=== PATIENT | female | born 1995 | race Caucasian/White ===

== ENCOUNTER 2017-04-27 07:00 | Inpatient (IN) | payer MEDICAID ==
[2017-04-27] VITALS (65 sets, daily range): BP systolic 95–176; BP diastolic 53–104
[~2017-04-27] VITALS: Ht 167.6 cm; Wt 81.6 kg
--- OUTSIDE RECORDS SUMMARY | 2017-04-27 07:29 | XMS REPORT | Continuity of Care Document ---
Demographics Preferred Language Unknown Marital Status Unknown Yazidi Affiliation Unknown Race Unknown Ethnic Group Unknown Author Author [facility] Address Unknown Phone Unavailable Allergies Medications Problems Procedures Results Encounters ACCT No. Visit Date/Time Discharge Status Pt. Type Provider Facility Loc./Unit Complaint [id number] 12/27/2012 19:10:59 Document Registration
[2017-04-27] MEDS ORDERED: OXYTOCIN/NORMAL SALINE 500 ML IV SCH ×2 (08:11→20:35)
[2017-04-27 08:14] LABS: BASOPHILS # (AUTO) 0.1 10^3/uL (0.0-0.1); BASOPHILS % (AUTO) 1 % (0-10); EOSINOPHILS # (AUTO) 0.7 10^3/uL (0.0-0.3); EOSINOPHILS % (AUTO) 7 % (0-10); LYMPHOCYTES # (AUTO) 2.2 X 10^3 (1.0-4.0); LYMPHOCYTES % (AUTO) 24 % (12-44); MEAN CORPUSCULAR HEMOGLOBIN 32 PG (25-34); MEAN CORPUSCULAR HGB CONC 35 G/DL (32-36); MEAN CORPUSCULAR VOLUME 92 FL (80-99); MEAN PLATELET VOLUME 11.8 FL (7.4-10.4); MONOCYTES # (AUTO) 0.9 X 10^3 (0.0-1.0); MONOCYTES % (AUTO) 10 % (0-12); NEUTROPHILS # (AUTO) 5.4 X 10^3 (1.8-7.8); NEUTROPHILS % (AUTO) 59 % (42-75); PLATELET COUNT 122 10^3/uL (130-400); RED BLOOD COUNT 3.85 10^6/uL (4.35-5.85); RED CELL DISTRIBUTION WIDTH 12.9 % (10.0-14.5); WHITE BLOOD COUNT 9.2 10^3/uL (4.3-11.0)
[2017-04-27] MEDS: D5 LR IV SOLUTION 1,000 ML IV SCH ×2 (08:19→14:31)
--- NOTE | 2017-04-27 08:35 | History & Physical ---
History and Physical Date Seen by Provider: Apr 27, 2017 Time Seen by Provider: 08:31 this patient is a 21-year-old G1 white female with an EDC of May 06, 2017. She presents now on April 27, 2017 for induction of labor secondary to oligohydramnios and cytopenia. Her last platelet count in clinic was 125,000 on admission her platelet count is 122K. her JOSE in clinic on 21 April was 60. She denies rupture membranes or bleeding. GBS culture on April 01, 2017 was negative she's had no specific problems with this . Allergies are to sulfa Demerol Products Medications are vitamins calcium and Prozac Past medical history, past surgical history, obstetric history, family history, and social histories are per the antepartum record HEENT exam is normal Neck is supple no lymphadenopathy no thyromegaly Abdomen is gravid soft nontender nondistended Extremities show no clubbing cyanosis. There is no Homans sign. There is some minimal pretibial pitting edema that is normal. Pelvic exam shows a cervix that is 2+ and regular dilated 50+ percent effaced - 1 to -2 station soft midplane with a vertex presentation and intact membranes. Amniotomy is performed with release of a small amount of clear fluid. Lab work is as followsLaboratory Tests 04/27/17 07:45 monitor shows a normal heart rate pattern with contractions about every 3-6 minutes. Has Been Initiated. Assessment and plan 38-5/7 weeks' gestation with thrombocytopenia and oligohydramnios. She has undergone induction of labor with Pitocin with the expectation of a vaginal delivery. Epidural will be allowed. Platelet count is adequate on admission at 122,000. GBS culture was negative term at 38+ weeks with thrombocytopenia and oligohydramnios Allergies and Home Medications Allergies Coded Allergies: midazolam (Verified Allergy, Severe, ANAPHYLAXIS, 04/27/17) Sulfa (Sulfonamide Antibiotics) (Verified Allergy, Unknown, RASH, 04/27/17) meperidine (Verified Allergy, Unknown, ANAPHYLAXIS, 04/27/17) JOSE MANUEL DAWSON MD Apr 27, 2017 08:35
[2017-04-27] MEDS ORDERED: SUFENTA 0.6MCG/ML BUPIVA 0.125 100 ML ONE (09:40)
[2017-04-27] MEDS ORDERED: BUPIVACAINE 0.25% 30 ML (SENSORCAINE) VIAL ONE (09:57)
[2017-04-27] MEDS ORDERED: fentaNYL INJECTION 100 MCG/2 ML AMP ONE (09:57)
[2017-04-27] MEDS: EPIDURAL (SUFENTA 0.6MCG/ML BUPIVA 0.125%) 100 ML BAG EPI PRN ×2 (10:30→18:18)
[2017-04-27] MEDS ORDERED: LACTATED RINGERS 1,000 ML IV SCH (10:56)
[2017-04-27] MEDS ORDERED: ONDANSETRON 4 MG/2 ML (SDV) Z0FRAN IV PRN (11:00)
[2017-04-27] MEDS ORDERED: diphenhydrAMINE 50 MG/ML INJ (BENADRYL) IV PRN (11:00)
[2017-04-27] MEDS ORDERED: METOCLOPRAMIDE INJ 10 MG/2 ML (REGLAN) IV PRN (11:00)
[2017-04-27] MEDS ORDERED: NALOXONE 0.4 MG/ML 1 ML (NARCAN) VIAL IV PRN ×2 (11:00)
[2017-04-27] MEDS ORDERED: CATHETER FLUSH 10 ML SYR IV SCH (14:00)
[2017-04-27] MEDS ORDERED: LIDOCAINE/EPI 2% 1:200,00 (XYLOCAINE) 10 ML VIAL ONE ×2 (18:49→19:08)
[2017-04-27] MEDS ORDERED: MEASLES,MUMPS,RUBELLA 1 EA INJ SC ONE (20:45)
[2017-04-27] MEDS ORDERED: TETANUS,DIPTH,PERTUSS P/F (BOOSTRIX) 0.5 ML VIAL IM ONE (20:45)
[2017-04-27] MEDS ORDERED: BENZOCAINE/MENTHOL (DERMOPLAST) 56 ML CAN TP PRN (20:45)
[2017-04-27] MEDS ORDERED: WITCH HAZEL(TUCKS) 40 EA JAR ONE (22:12)
[2017-04-27] MEDS: KETOROLAC 30 MG/ML VIAL IV SCH (22:20)
[2017-04-28] MEDS: oxyCODONE/APAP 10/325MG (PERCOCET 10) TABLET PO PRN ×3 (02:26→20:53)
[2017-04-28 03:00] VITALS: BP 132/76
[2017-04-28] MEDS: KETOROLAC 30 MG/ML VIAL IV SCH (04:17)
--- NOTE | 2017-04-28 05:44 | OPERATIVE REPORT ---
DATE OF SERVICE: 04/27/2017 REPORT TITLE: DELIVERY NOTE DATE OF DELIVERY: 04/27/2017 The patient delivered via term spontaneous vaginal delivery at 38 and 2/7 weeks' gestation, a viable male with Apgars of 8 and 9 at 1 and 5 minutes respectively. Weight is 7 pounds and 1 ounce, time of 2011. The infant was delivered over a midline episiotomy that was performed at the patient's request when the presenting descended onto the perineum and she could not push the baby through. The episiotomy was performed under her epidural augmented with local infiltrated into her bottom and the delivery ensued fairly promptly. The was bulb suctioned on delivery of the head. Again, on completion of the delivery, the infant was quickly pink, moved all extremities, had excellent tone and reflexes and a vigorous cry. The umbilical cord was doubly clamped. Father cut the cord and baby was passed to mom's abdomen. This was accomplished after the umbilical cord bloods were obtained including a cord blood gas that was obtained secondary to some decelerations during the second stage of labor. The placenta delivered promptly spontaneous Dickerson, it was a battledore placenta with a velamentous insertion of the umbilical cord for approximately 5 cm prior to attachment to the placental disk. The placenta was sent to pathology for permanent section. The cervix, vagina, rectum, perineum were examined and found intact except for the midline episiotomy, which was repaired with a single suture of 3-0 Vicryl in the usual manner to good hemostasis and good reapproximation. Sponge and needle counts were correct on completion of the delivery and the repair. Estimated blood loss was around 400 mL. The patient tolerated the delivery and the repair very well and recovered in the LDR. The baby remained with the mom. Job ID: [id number] DocumentID: [id number] Dictated Date: 04/27/2017 20:35:26 Hose Tester Date: 04/28/2017 05:43:23 Dictated By: JOSE MANUEL DAWSON MD
[2017-04-28] MEDS ORDERED: FLUO20CA42 PO (07:27)
[2017-04-28] MEDS ORDERED: PATIENT MAY USE OWN MEDS, ALL MC SCH (07:30)
--- NOTE | 2017-04-28 07:37 | Progress Note-Standard ---
Standard Progress Note Progress Notes/Assess & Plan Date Seen by Provider: Apr 28, 2017 Time Seen by Provider: 07:36 Progress/Assessment & Plan this patient is without complaint. She is ambulating, voiding, tolerating by mouth well, has good pain control. Vital Signs Date Time Temp Pulse Resp B/P (MAP) Pulse Ox O2 Delivery O2 Flow Rate FiO2 04/28/17 03:00 98.4 102 17 132/76 99 Room Air 04/27/17 23:25 99.1 93 18 115/65 97 Room Air 04/27/17 21:30 100.0 96 18 133/78 Room Air 04/27/17 21:15 99.6 88 18 128/72 Room Air 04/27/17 21:00 99.6 106 18 126/71 Room Air 04/27/17 20:45 99.2 100 18 135/79 Room Air 04/27/17 20:30 98.9 106 18 133/78 Room Air 04/27/17 20:12 18 Room Air 04/27/17 20:00 104 18 176/89 Room Air 04/27/17 19:45 111 18 153/104 Room Air 04/27/17 19:30 81 18 126/80 Room Air 04/27/17 19:15 93 18 125/78 Room Air 04/27/17 19:00 69 18 120/69 Room Air 04/27/17 18:45 68 18 118/71 Room Air 04/27/17 18:30 72 18 129/84 Room Air 04/27/17 18:15 71 18 126/96 Room Air 04/27/17 18:00 73 18 157/85 Room Air 04/27/17 17:45 69 18 137/78 Room Air 04/27/17 17:40 87 130/70 Room Air 04/27/17 17:35 82 130/76 Room Air 04/27/17 17:30 75 18 135/91 Room Air 04/27/17 17:20 75 18 131/84 Room Air 04/27/17 17:15 97.8 70 18 132/76 Room Air 04/27/17 17:00 77 18 126/82 Room Air 04/27/17 16:45 68 18 129/80 Room Air 04/27/17 16:30 71 18 133/79 Room Air 04/27/17 16:15 73 18 118/76 Room Air 04/27/17 16:00 62 18 130/80 Room Air 04/27/17 15:45 62 18 119/69 Room Air 04/27/17 15:30 65 18 122/71 98 Room Air 04/27/17 15:15 73 18 122/66 98 Room Air 04/27/17 15:00 65 18 117/65 98 Room Air 04/27/17 14:45 73 18 123/69 98 Room Air 04/27/17 14:30 97.6 72 18 123/74 Room Air 04/27/17 14:15 80 18 132/79 Room Air 04/27/17 14:00 76 18 122/76 Room Air 04/27/17 13:45 70 18 121/79 Room Air 04/27/17 13:30 97.2 69 18 133/81 Room Air 04/27/17 13:15 73 18 125/88 Room Air 04/27/17 13:00 67 18 125/88 98 Room Air 04/27/17 12:45 73 18 123/69 98 Room Air 04/27/17 12:30 67 18 117/67 100 Room Air 04/27/17 12:15 96.6 60 18 122/63 100 Room Air 04/27/17 12:00 69 18 115/63 100 Room Air 04/27/17 11:45 97.2 77 18 95/53 100 Room Air 04/27/17 11:30 69 18 108/58 100 Room Air 04/27/17 11:15 63 18 100 Room Air 04/27/17 11:05 62 116/71 99 Room Air 04/27/17 11:00 64 18 124/76 99 Room Air 04/27/17 10:55 73 18 124/69 100 Room Air 04/27/17 10:50 64 18 111/62 100 Room Air 04/27/17 10:45 87 18 130/68 98 Room Air 04/27/17 10:40 103 18 134/75 99 Room Air 04/27/17 10:33 69 18 124/72 98 Room Air 04/27/17 10:30 87 18 130/68 98 Room Air 04/27/17 10:28 70 18 122/61 98 Room Air 04/27/17 10:25 86 18 125/59 98 Room Air 04/27/17 10:20 88 18 134/74 97 Room Air 04/27/17 10:15 98.9 90 18 133/76 99 Room Air 04/27/17 10:10 80 154/91 99 Room Air 04/27/17 10:00 96 18 168/94 100 Room Air 04/27/17 09:45 75 18 137/87 Room Air 04/27/17 09:30 73 18 145/88 Room Air 04/27/17 09:15 74 18 135/87 Room Air 04/27/17 09:00 99.2 62 18 145/92 Room Air 04/27/17 08:45 75 18 134/93 Room Air 04/27/17 08:30 61 18 131/84 Room Air vital signs are stable. Patient is afebrile. Fundus is firm below the umbilicus and nontender. Extremities show clubbing or cyanosis. There is no Homans sign. Assessment and plan day number 1 status post term spontaneous vaginal delivery doing well. Plan for routine convalescence care today and consider discharge home tomorrow JOSE MANUEL DAWSON MD Apr 28, 2017 7:37 am
[2017-04-28] MEDS ORDERED: IBUP-1780 PO (07:38)
[2017-04-28] MEDS ORDERED: DOCU100C37 PO (07:38)
[2017-04-28] MEDS ORDERED: OXYC-465 PO (07:38)
--- NOTE | 2017-04-28 07:40 | Discharge Instructions ---
Discharge Instructions Discharge Medications New, Converted or Re-Newed RX: RX on Chart Patient Instructions Patient Instructions: as directed Return to The Hospital For: as directed Activity & Diet Discharge Diet: No Restrictions Activity as Tolerated: No Orders-Post D/C & Referrals Follow Up Appt: Call to make follow up appt. for patient in 4 weeks. Activity Per routine post vaginal delivery instructions. Diet as tolerated Patient may shower or tub bathe as desired. JOSE MANUEL DAWSON MD Apr 28, 2017 7:40 am
[2017-04-28 08:00] VITALS: BP 133/71
[2017-04-28] MEDS ORDERED: FLUoxetine HCL 20 MG (PROzac) CAP PO SCH ×2 (09:00→21:00)
[2017-04-28] MEDS ORDERED: IBUPROFEN 800 MG (MOTRIN) TAB PO ONE ×2 (09:08→16:04)
[2017-04-28] MEDS: IBUPROFEN 800 MG (MOTRIN) TAB PO SCH ×3 (09:17→22:04)
[2017-04-28] MEDS: DOCUSATE SODIUM 100 MG (COLACE) CAP PO SCH ×2 (09:17→22:04)
[2017-04-28 12:00] VITALS: BP 112/70
--- NOTE | 2017-04-28 13:04 | Anesthesia-Regional Post-Op ---
Regional Patient Condition Mental Status: Alert, Oriented x3 Circulation: Same as Pre-Op Headache: Absent Sensation: Full Recovery Motor Block: Absent Post Op Complications Complications None Follow Up Care/Instructions Patient Instructions None needed. Anesthesia/Patient Condition Patient is doing well, no complaints, stable vital signs, no apparent adverse anesthesia problems. No complications reported per nursing. STU TEMPLETON CRNA Apr 28, 2017 13:03
[2017-04-28 16:07] VITALS: BP 133/81
[2017-04-28 22:19] VITALS: BP 124/80
[2017-04-29 04:05] VITALS: BP 112/66
[2017-04-29] MEDS: IBUPROFEN 800 MG (MOTRIN) TAB PO SCH ×2 (04:05→09:38)
[2017-04-29] MEDS: oxyCODONE/APAP 10/325MG (PERCOCET 10) TABLET PO PRN ×2 (06:37→11:15)
--- NOTE | 2017-04-29 07:28 | Progress Note-Standard ---
Standard Progress Note Progress Notes/Assess & Plan Date Seen by Provider: Apr 29, 2017 Time Seen by Provider: 07:27 Progress/Assessment & Plan this patient is without complaint. She is ambulating, voiding, tolerating by mouth well, has good pain control. Vital Signs Date Time Temp Pulse Resp B/P (MAP) Pulse Ox O2 Delivery O2 Flow Rate FiO2 04/28/17 03:00 98.4 102 17 132/76 99 Room Air 04/27/17 23:25 99.1 93 18 115/65 97 Room Air 04/27/17 21:30 100.0 96 18 133/78 Room Air 04/27/17 21:15 99.6 88 18 128/72 Room Air 04/27/17 21:00 99.6 106 18 126/71 Room Air 04/27/17 20:45 99.2 100 18 135/79 Room Air 04/27/17 20:30 98.9 106 18 133/78 Room Air 04/27/17 20:12 18 Room Air 04/27/17 20:00 104 18 176/89 Room Air 04/27/17 19:45 111 18 153/104 Room Air 04/27/17 19:30 81 18 126/80 Room Air 04/27/17 19:15 93 18 125/78 Room Air 04/27/17 19:00 69 18 120/69 Room Air 04/27/17 18:45 68 18 118/71 Room Air 04/27/17 18:30 72 18 129/84 Room Air 04/27/17 18:15 71 18 126/96 Room Air 04/27/17 18:00 73 18 157/85 Room Air 04/27/17 17:45 69 18 137/78 Room Air 04/27/17 17:40 87 130/70 Room Air 04/27/17 17:35 82 130/76 Room Air 04/27/17 17:30 75 18 135/91 Room Air 04/27/17 17:20 75 18 131/84 Room Air 04/27/17 17:15 97.8 70 18 132/76 Room Air 04/27/17 17:00 77 18 126/82 Room Air 04/27/17 16:45 68 18 129/80 Room Air 04/27/17 16:30 71 18 133/79 Room Air 04/27/17 16:15 73 18 118/76 Room Air 04/27/17 16:00 62 18 130/80 Room Air 04/27/17 15:45 62 18 119/69 Room Air 04/27/17 15:30 65 18 122/71 98 Room Air 04/27/17 15:15 73 18 122/66 98 Room Air 04/27/17 15:00 65 18 117/65 98 Room Air 04/27/17 14:45 73 18 123/69 98 Room Air 04/27/17 14:30 97.6 72 18 123/74 Room Air 04/27/17 14:15 80 18 132/79 Room Air 04/27/17 14:00 76 18 122/76 Room Air 04/27/17 13:45 70 18 121/79 Room Air 04/27/17 13:30 97.2 69 18 133/81 Room Air 04/27/17 13:15 73 18 125/88 Room Air 04/27/17 13:00 67 18 125/88 98 Room Air 04/27/17 12:45 73 18 123/69 98 Room Air 04/27/17 12:30 67 18 117/67 100 Room Air 04/27/17 12:15 96.6 60 18 122/63 100 Room Air 04/27/17 12:00 69 18 115/63 100 Room Air 04/27/17 11:45 97.2 77 18 95/53 100 Room Air 04/27/17 11:30 69 18 108/58 100 Room Air 04/27/17 11:15 63 18 100 Room Air 04/27/17 11:05 62 116/71 99 Room Air 04/27/17 11:00 64 18 124/76 99 Room Air 04/27/17 10:55 73 18 124/69 100 Room Air 04/27/17 10:50 64 18 111/62 100 Room Air 04/27/17 10:45 87 18 130/68 98 Room Air 04/27/17 10:40 103 18 134/75 99 Room Air 04/27/17 10:33 69 18 124/72 98 Room Air 04/27/17 10:30 87 18 130/68 98 Room Air 04/27/17 10:28 70 18 122/61 98 Room Air 04/27/17 10:25 86 18 125/59 98 Room Air 04/27/17 10:20 88 18 134/74 97 Room Air 04/27/17 10:15 98.9 90 18 133/76 99 Room Air 04/27/17 10:10 80 154/91 99 Room Air 04/27/17 10:00 96 18 168/94 100 Room Air 04/27/17 09:45 75 18 137/87 Room Air 04/27/17 09:30 73 18 145/88 Room Air 04/27/17 09:15 74 18 135/87 Room Air 04/27/17 09:00 99.2 62 18 145/92 Room Air 04/27/17 08:45 75 18 134/93 Room Air 04/27/17 08:30 61 18 131/84 Room Air vital signs are stable. Patient is afebrile. Fundus is firm below the umbilicus and nontender. Extremities show clubbing or cyanosis. There is no Homans sign. Assessment and plan day number 1 status post term spontaneous vaginal delivery doing well. Plan for routine convalescence care today and consider discharge home tomorrow pelvis 2016 Patient is without complaint. She is ambulating, voiding, tolerating by mouth well, has good pain control, patient is requesting discharge home. Vital Signs Date Time Temp Pulse Resp B/P (MAP) Pulse Ox O2 Delivery O2 Flow Rate FiO2 04/29/17 04:05 98.5 67 18 112/66 98 Room Air 04/28/17 22:19 98.1 87 18 124/80 98 Room Air 04/28/17 16:07 98.3 110 18 133/81 98 Room Air 04/28/17 12:00 98.7 96 18 112/70 97 Room Air 04/28/17 08:00 98.9 93 17 133/71 99 Room Air vital signs are stable. Patient is afebrile. Fundus is firm below the umbilicus and nontender. Extremities show no clubbing cyanosis. There is no Homans sign. There is some pretibial pitting edema that is normal. Assessment and plan day number 2 status post term spontaneous vaginal delivery doing well. Plan is for discharge home with follow-up in clinic. Final Diagnosis term spontaneous vaginal delivery JOSE MANUEL DAWSON MD Apr 29, 2017 7:28 am
[2017-04-29] MEDS: D5 LR IV SOLUTION 1,000 ML IV SCH ×2 (08:31→08:32)
[2017-04-29 08:37] VITALS: BP 101/68
[2017-04-29] MEDS: DOCUSATE SODIUM 100 MG (COLACE) CAP PO SCH (09:38)
[2017-04-29] MEDS ORDERED: TETANUS,DIPTH,PERTUSS P/F (BOOSTRIX) 0.5 ML VIAL IM ONE (10:49)
[2017-04-29 12:52] VITALS: BP 138/90
== END 2017-04-29 15:15 | disposition home or self-care (01) | DRG 775 ==
LOC: LDRP 07:10 → 3RD 04-28 09:48 → LDRP 04-28 09:48
PROVIDERS: ADMIT Obstetrics & Gynecology; ATTEND Obstetrics & Gynecology
PROC: 10E0XZZ Delivery of Products of Conception, External Approach (ICD-10-PCS; principal; 2017-04-27)
PROC: 0W8NXZZ Division of Female Perineum, External Approach (ICD-10-PCS; 2017-04-27)
PROC: 3E033GC Introduction of Other Therapeutic Substance into Peripheral Vein, Percutaneous Approach (ICD-10-PCS; 2017-04-27)
DX: O41.03X0 Oligohydramnios, third trimester, not applicable or unspecified (principal); O99.12 Other diseases of the blood and blood-forming organs and certain disorders involving the immune mechanism complicating childbirth; D69.6 Thrombocytopenia, unspecified; O43.193 Other malformation of placenta, third trimester; Z37.0 Single live birth; Z3A.38 38 weeks gestation of pregnancy; Z23 Encounter for immunization
CPT/HCPCS: 36415; 85025; 86850; 86900; 86901; 90715

== ENCOUNTER 2017-11-22 13:57 | Outpatient (RCR) | payer MEDICAID ==
[~2017-11-22 13:57] MED LIST: DOCU100C37 PO; FLUO20CA42 PO; IBUP-1780 PO; OXYC-465 PO
== END 2018-02-05 | disposition home or self-care (01) ==
LOC: LAB 13:57
PROVIDERS: ATTEND Obstetrics & Gynecology
DX: R19.7 Diarrhea, unspecified (principal)

== ENCOUNTER → 2019-02-06 | Outpatient (CLI) | payer MEDICAID ==
[~2019-02-06] MED LIST changes: +CEPH-507 PO; +CITA20TA12 PO; +CYCL10TA9 PO; +FERR-84 PO; +HYDR-3870 PO; +LABE200T7 PO; +OXYC1TAB87 PO
== END ==
LOC: LABNPT 10:45
PROVIDERS: ATTEND Obstetrics & Gynecology
DX: O14.03 Mild to moderate pre-eclampsia, third trimester (principal)
CPT/HCPCS: 82570; 84156

== ENCOUNTER 2019-02-08 10:40 | Inpatient (IN) | payer MEDICAID ==
[~2019-02-08] VITALS: Ht 167.6 cm; Wt 87.6 kg
[2019-02-08] VITALS (7 sets, daily range): BP systolic 128–142; BP diastolic 77–96
[~2019-02-08 10:40] MED LIST changes: -CEPH-507 PO; -CITA20TA12 PO; -CYCL10TA9 PO; -FERR-84 PO; -HYDR-3870 PO; -LABE200T7 PO; -OXYC1TAB87 PO
--- NOTE | 2019-02-08 10:40 | NUR ---
JAN ENRIQUE presented to unit via ambulation from 's office, accompanied by family members, for pre-eclampsia. Pt. weighed, gowned, voided, and to bed. EFHM and TOCO applied, VS taken. Pt. oriented to bed controls, call light, TV, heat, and A/C controls.
[2019-02-08] MEDS: D5 LR IV SOLUTION 1,000 ML IV SCH (11:13)
--- NOTE | 2019-02-08 11:13 | NUR ---
#20g IV to Lt.wrist x1 attempt by this RN. site patent, secured with opsite. admission labs collected from site prior to IVF's infusing. pt tolerated well.
--- NOTE | 2019-02-08 11:16 | NUR ---
pt repositioned to Lt.side. TOCO readjusted. POC reviewed, states understanding.
[2019-02-08 11:31] LABS: HEMOGLOBIN 10.7 G/DL (11.5-16.0); MEAN PLATELET VOLUME 11.6 FL (7.4-10.4); RED CELL DISTRIBUTION WIDTH 13.5 % (10.0-14.5); WHITE BLOOD COUNT 9.3 10^3/uL (4.3-11.0)
[2019-02-08 11:48] LABS: COLOR,URINE YELLOW
[2019-02-08 11:49] LABS: BACTERIA,URINE FEW /HPF; BILIRUBIN,URINE NEGATIVE (NEGATIVE); CLARITY,URINE CLEAR; GLUCOSE, URINE (UA) NEGATIVE (NEGATIVE); KETONES,URINE NEGATIVE (NEGATIVE); LEUKOCYTE ESTERASE ,URINE 3+ (NEGATIVE); NITRITE,URINE NEGATIVE (NEGATIVE); PROTEIN,URINE NEGATIVE (NEGATIVE); UROBILINOGEN,URINE 0.2 MG/DL (NORMAL); WBC,URINE 50-100 /HPF
[2019-02-08 11:56] LABS: ALANINE AMINOTRANSFERASE 16 U/L (0-55); ALBUMIN 3.4 GM/DL (3.2-4.5); ALKALINE PHOSPHATASE 149 U/L (40-136); BILIRUBIN,TOTAL 0.6 MG/DL (0.1-1.0); BUN/CREATININE RATIO 11; CALCIUM 9.3 MG/DL (8.5-10.1); CARBON DIOXIDE 21 MMOL/L (21-32); CHLORIDE 106 MMOL/L (98-107); CREATININE SERUM 0.56 MG/DL (0.60-1.30); GFR ESTIMATED > 60; GLUCOSE 65 MG/DL (70-105); POTASSIUM 3.4 MMOL/L (3.6-5.0); SODIUM 138 MMOL/L (135-145); TOTAL PROTEIN 6.3 GM/DL (6.4-8.2); URIC ACID 3.7 MG/DL (2.6-7.2)
--- NOTE | 2019-02-08 12:05 | NUR ---
was called r/t lab results. new orders received.
--- NOTE | 2019-02-08 12:22 | NUR ---
here to see pt. POC reviewed.
--- NOTE | 2019-02-08 12:35 | History & Physical ---
History and Physical Date Seen by Provider: Feb 08, 2019 Time Seen by Provider: 12:30 This patient is a 23-year-old A1 white female with an EDC of 6 [id number] patient her 1 day shy of 37 weeks. She was seen in clinic on this date in follow-up from her prior visit where her urine protein creatinine ratio had been somewhat elevated her platelet count was decreasing. We found a further elevation in the urine protein creatinine ratio and a further drop in her platelets and no further elevation her blood pressure to the 140s over 100. She was sent to labor and delivery for evaluation where the lab work and her presentation is consistent with preeclampsia. She is admitted now for observation until she obtains 37 weeks which will be midnight tonight and then we will induce her tomorrow. Her GBS culture done after 35 weeks gestation was negative. She denies rupture membranes or bleeding. She denies contractions. She does feel baby moving. She does complain of a headache. This was also complicated by an abnormal screen shown a Down syndrome risk of 1 in 220. She has seen a high-risk OB doctor who said it does not appear that this fetus is affected. Allergies are to Demerol and Versed was caused swelling in her throat Medications are vitamins and Celexa and Zantac Medical surgical and obstetric histories are per the antepartum record HEENT exam is normal. Patient does have somewhat bob puffy complexion Neck is supple no lymphadenopathy no thyromegaly Abdomen is gravid soft nontender nondistended Extremities show no clubbing cyanosis. There is no Homans sign. There is fairly notable pretibial pitting edema. Patient's DTRs are 3+ globally Pelvic exam is deferred Laboratory Tests Test 02/08/19 11:00 02/08/19 11:13 Range/Units Urine Color YELLOW Urine Clarity CLEAR Urine pH 8.0 5-9 Urine Specific Anderson 1.010 L 1.016-1.022 Urine Protein 10 6-12 MG/DL Urine Glucose (UA) NEGATIVE NEGATIVE Urine Ketones NEGATIVE NEGATIVE Urine Nitrite NEGATIVE NEGATIVE Urine Bilirubin NEGATIVE NEGATIVE Urine Urobilinogen 0.2 NORMAL MG/DL Urine Leukocyte Esterase 3+ H NEGATIVE Urine RBC (Auto) NEGATIVE NEGATIVE Urine RBC NONE /HPF Urine WBC 50-100 H /HPF Urine Squamous Epithelial Cells 5-10 /HPF Urine Crystals NONE /LPF Urine Bacteria FEW H /HPF Urine Casts NONE /LPF Urine Mucus NEGATIVE /LPF Urine Culture Indicated YES Urine Creatinine 37 30-125 MG/DL Urine Protein/Creatinine Ratio 0.27 White Blood Count 9.3 4.3-11.0 10^3/uL Red Blood Count 3.51 L 4.35-5.85 10^6/uL Hemoglobin 10.7 L 11.5-16.0 G/DL Hematocrit 32 L 35-52 % Mean Corpuscular Volume 92 80-99 FL Mean Corpuscular Hemoglobin 30 25-34 PG Mean Corpuscular Hemoglobin Concent 33 32-36 G/DL Red Cell Distribution Width 13.5 10.0-14.5 % Platelet Count 130 130-400 10^3/uL Mean Platelet Volume 11.6 H 7.4-10.4 FL Sodium Level 138 135-145 MMOL/L Potassium Level 3.4 L 3.6-5.0 MMOL/L Chloride Level 106 98-107 MMOL/L Carbon Dioxide Level 21 21-32 MMOL/L Anion Gap 11 5-14 MMOL/L Blood Urea Nitrogen 6 L 7-18 MG/DL Creatinine 0.56 L 0.60-1.30 MG/DL Estimat Glomerular Filtration Rate > 60 BUN/Creatinine Ratio 11 Glucose Level 65 L 70-105 MG/DL Uric Acid 3.7 2.6-7.2 MG/DL Calcium Level 9.3 8.5-10.1 MG/DL Corrected Calcium 9.8 8.5-10.1 MG/DL Total Bilirubin 0.6 0.1-1.0 MG/DL Aspartate Amino Transf (AST/SGOT) 25 5-34 U/L Alanine Aminotransferase (ALT/SGPT) 16 0-55 U/L Alkaline Phosphatase 149 H 40-136 U/L Lactate Dehydrogenase 203 125-220 U/L Total Protein 6.3 L 6.4-8.2 GM/DL Albumin 3.4 3.2-4.5 GM/DL Lab work is as noted. Patient may very well have a urinary tract infection we will cover her empirically with Ancef 1 g every 6 hours Assessment and plan near-term at 36-6/7 weeks' gestation with p reeclampsia and with likely UTI. We will observe this evening and induce tomorrow when the patient has attained 37 weeks with Pitocin. We anticipate a vaginal delivery. We'll start Ancef 1 g every 6 hours for her apparent urinary tract infection 36-6/7 weeks' gestation with eclampsia Allergies and Home Medications Allergies Coded Allergies: midazolam (Verified Allergy, Severe, ANAPHYLAXIS, 04/27/17) Sulfa (Sulfonamide Antibiotics) (Verified Allergy, Unknown, RASH, 04/27/17) meperidine (Verified Allergy, Unknown, ANAPHYLAXIS, 04/27/17) Home Medications Docusate Sodium 100 Mg Capsule, 100 MG PO BID Prescribed by: JOSE MANUEL BLACK on 04/28/17 0738 Fluoxetine HCl 20 Mg Capsule, 20 MG PO DAILY, (Reported) Ibuprofen 800 Mg Tablet, 800 MG PO Q6H Prescribed by: JOSE MANUEL BLACK on 04/28/17 0738 Oxycodone HCl/Acetaminophen 1 Each Tablet, 1-2 TAB PO Q4HR PRN for PAIN-MODERATE TO SEVERE Prescribed by: JOSE MANUEL BLACK on 04/28/17 0738 Patient Home Medication List Home Medication List Reviewed: Yes JOSE MANUEL DAWSON MD Feb 08, 2019 12:35
[2019-02-08] MEDS ORDERED: DOCU100C37 PO (12:44)
[2019-02-08] MEDS ORDERED: IBUP-1780 PO (12:44)
[2019-02-08] MEDS ORDERED: OXYC1TAB87 PO (12:44)
--- NOTE | 2019-02-08 12:45 | Discharge Instructions ---
Discharge Instructions Discharge Medications New, Converted or Re-Newed RX: RX on Chart Patient Instructions Patient Instructions: As directed Return to The Hospital For: as directed Activity & Diet Discharge Diet: No Restrictions Activity as Tolerated: No Orders-Post D/C & Referrals Follow Up Appt: Call to make follow up appt. for patient in 4 weeks. Activity Per routine post vaginal delivery instructions. Diet as tolerated Patient may shower or tub bathe as desired. JOSE MANUEL DAWSON MD Feb 08, 2019 12:45
--- NOTE | 2019-02-08 16:09 | NUR ---
monitors applied for NST. pt watching t.v. no c/o's voiced.
--- NOTE | 2019-02-08 16:52 | NUR ---
monitors dc'd. reactive NST noted.
[2019-02-08] MEDS ORDERED: CYCL10TA9 PO (17:04)
[2019-02-08] MEDS ORDERED: CITA20TA12 PO (17:04)
[2019-02-08] MEDS ORDERED: ceFAZolin INJECTION 1,000 MG in NS (IVPB) 50 ML IV SCH (18:00)
[2019-02-08] MEDS: ceFAZolin INJECTION 1,000 MG in WATER (STERILE) FOR INJECTION 10 ML IV SCH (18:28)
--- NOTE | 2019-02-08 18:33 | NUR ---
pt eating regular diet. watching t/v no c/o's voiced.
--- NOTE | 2019-02-08 19:11 | NUR ---
report given to next shift.
[2019-02-09] VITALS (63 sets, daily range): BP systolic 124–187; BP diastolic 57–117
[2019-02-09] MEDS: ceFAZolin INJECTION 1,000 MG in WATER (STERILE) FOR INJECTION 10 ML IV SCH ×4 (00:05→18:00)
[2019-02-09] MEDS ORDERED: OXYTOCIN/NORMAL SALINE 500 ML IV SCH ×2 (06:00→15:14)
[2019-02-09] MEDS ORDERED: SUFENTA 0.6MCG/ML BUPIVA 0.125 100 ML ONE (07:31)
[2019-02-09] MEDS ORDERED: LACTATED RINGERS 1,000 ML IV ONE (07:31)
--- NOTE | 2019-02-09 07:52 | Progress Note-Standard ---
Standard Progress Note Progress Notes/Assess & Plan Date Seen by a Provider: Feb 09, 2019 Time Seen by a Provider: 07:51 Progress/Assessment & Plan Patient is without complaint. Her headache has waxed and waned. She denies rupture membranes or bleeding. She has been started on Pitocin this morning for induction of labor secondary to her preeclampsia. Vital Signs Date Time Temp Pulse Resp B/P (MAP) Pulse Ox O2 Delivery O2 Flow Rate FiO2 02/09/19 07:05 88 16 129/88 (102) Room Air 02/09/19 06:50 83 16 131/90 (104) Room Air 02/09/19 06:35 78 16 129/91 (104) Room Air 02/09/19 06:20 73 16 125/88 (100) Room Air 02/09/19 06:05 97.2 76 16 136/90 (105) Room Air 02/09/19 04:10 98.1 90 16 126/74 (91) 98 Room Air 02/09/19 00:10 97.8 83 16 125/80 (95) 98 Room Air 02/08/19 20:57 97.2 102 20 142/92 (109) Room Air 02/08/19 16:09 98.4 86 18 128/81 (97) Room Air 02/08/19 12:00 93 18 135/85 (102) Room Air 02/08/19 11:30 98.5 90 18 132/80 (97) Room Air 02/08/19 11:26 85 18 128/77 (94) Room Air 02/08/19 11:15 93 18 139/92 (108) 99 Room Air 02/08/19 10:58 84 18 138/96 (110) 99 Room Air Vital signs are stable. Blood pressures have been somewhat labile but acceptable. Patient is afebrile. The abdomen is gravid and nontender. Extremities show no clubbing cyanosis. There is some pretibial pitting edema. There is no Homans sign. Pelvic exam shows a cervix 3 cm dilated over 50 percent effaced -1 station vertex presentation with intact membranes. Amniotomy is performed with release of clear fluid. Assessment and plan hospital day 2 now at 37 weeks gestation with preeclampsia. Plan is for induction of labor with Pitocin anticipation is for vaginal delivery. Patient does appear to have a urinary tract infection and has been started empirically on Ancef pending a culture SAMIR,JOSE MANUEL G MD Feb 09, 2019 07:52
--- NOTE | 2019-02-09 08:00 | NUR ---
MADELIN Sanderson here for epidural placement. Procedure explained, consent reviewed and signed by anesthesia. Questions answered to patient's satisfaction. Time out taken to verify correct patient/procedure. 0806- Patient up to side of bed, assisted into sitting position. Betadine prep done x3 and sterile drape applied. 0815- Local done, see anesthesia record. 0825-Test dose given, see anesthesia record for drug and dosage. 0824- Epidural catheter secured in place. Epidural placement complete. 0830-Assisted back into bed, monitors adjusted. Epidural dosed, see anesthesia record. Epidural of Sufenta/Bupvicaine @12cc/hr stated per pump. Patient tolerated procedure well.
[2019-02-09] MEDS ORDERED: fentaNYL INJECTION 100 MCG/2 ML AMP ONE (08:31)
[2019-02-09] MEDS ORDERED: CEPHALEXIN 250 MG (KEFLEX) CAP PO ONE (09:00)
[2019-02-09] MEDS: D5 LR IV SOLUTION 1,000 ML IV SCH ×2 (10:07→23:00)
--- NOTE | 2019-02-09 11:12 | NUR ---
was called with SVE update. recheck cervix in 30 mins, call MD with update.
--- NOTE | 2019-02-09 11:48 | NUR ---
was called with BP and SVE update. order received for 5mg Hydralazine now.
[2019-02-09] MEDS ORDERED: hydrALAZINE (APESOLINE) 20 MG/ML VIAL ONE (12:37)
--- NOTE | 2019-02-09 12:40 | NUR ---
was called in OR #2 with SVE and BP update. no new orders received @ time.
[2019-02-09] MEDS ORDERED: ONDANSETRON 4 MG/2 ML (SDV) Z0FRAN ONE (12:42)
[2019-02-09] MEDS: ONDANSETRON 4 MG/2 ML (SDV) Z0FRAN IVP PRN ×2 (12:47→18:24)
--- NOTE | 2019-02-09 12:50 | NUR ---
Dr. Stanley was called with BP update, order received for 5mg Hydralazine now.
--- NOTE | 2019-02-09 13:06 | NUR ---
was called in OR #2 with SVE and BP update. order received to call back in 30 mins. with update
[2019-02-09] MEDS ORDERED: hydrALAZINE (APESOLINE) 20 MG/ML VIAL IV ONE ×2 (13:30)
--- NOTE | 2019-02-09 13:30 | NUR ---
was called with SVE update. no new orders received @ time.
--- NOTE | 2019-02-09 14:06 | NUR ---
call from Arianne CONSULTING DATABASE ADMINISTRATOR per to restart pitocin @ 6 cc/hr and stop epidural infusion.
[2019-02-09] MEDS ORDERED: CARBOPROST (HEMABATE) 250 MCG/ML AMP IM ONE ×2 (14:39→16:15)
[2019-02-09] MEDS ORDERED: KETOROLAC 30 MG/ML VIAL ONE (14:50)
[2019-02-09] MEDS: KETOROLAC 30 MG/ML VIAL IVP SCH ×2 (14:57→19:48)
--- NOTE | 2019-02-09 14:57 | NUR ---
Gautam, pharmacist called to notify this RN that Hemabate will "raise BP" and to observe. phone call was taken by ALMA DELIA Quezada.
--- NOTE | 2019-02-09 15:12 | NUR ---
was called r/t phone call from pharmacy. update given on BP's. new orders received to start Magnesium @ 2gm/hr. place mclaughlin catheter. Labetalol 100mg p.o. BID and Stadol 1mg IV q 1hour prn pain.
[2019-02-09] MEDS ORDERED: KETOROLAC 30 MG/ML VIAL IVP PRN (15:15)
[2019-02-09] MEDS ORDERED: TETANUS,DIPTH,PERTUSS P/F (BOOSTRIX) 0.5 ML VIAL IM ONE (15:15)
[2019-02-09] MEDS ORDERED: MEASLES,MUMPS,RUBELLA 1 EA INJ SC ONE (15:15)
[2019-02-09] MEDS ORDERED: BENZOCAINE/MENTHOL (DERMOPLAST) 56 ML CAN TP PRN (15:15)
[2019-02-09] MEDS ORDERED: BUTORPHANOL INJ 2 MG/ML (STADOL) VIAL ONE (15:24)
[2019-02-09] MEDS: BUTORPHANOL INJ 2 MG/ML (STADOL) VIAL IV PRN ×2 (15:31→18:13)
--- NOTE | 2019-02-09 15:31 | NUR ---
Stadol 1mg IV given for c/o pain. 1536- FFu/1. lt rubra noted. no clots expressed. mclaughlin catheter inserted by this RN while using sterile procedure. immediate return of clear, yellow urine noted.
--- NOTE | 2019-02-09 16:12 | NUR ---
Magnesium @ 50cc/hr infusing per Dr's orders. pitocin infusion decreased to 75cc/hr.
[2019-02-09] MEDS: MAGNESIUM SULFATE DRIP 500 ML IV SCH (16:15)
--- NOTE | 2019-02-09 16:50 | NUR ---
FFu/1. lt rubra noted. family and infant @ side.
[2019-02-09] MEDS: LABETALOL 200 MG (NORMODYNE) TAB PO SCH (18:00)
--- NOTE | 2019-02-09 18:15 | NUR ---
epidural catheter dc'd. color tip intact
--- NOTE | 2019-02-09 18:24 | NUR ---
zofran 12mg IV given. sudden onset of N/V. emesis basin given. cool washcloth applied.
--- NOTE | 2019-02-09 18:30 | NUR ---
FFu/1. lt rubra noted. no clots expressed. loan-care offered. Dermaplast to perineum. v-pad and panties in place. pt transferred to room 312 via w/c with and @ side.
[2019-02-09] MEDS: DOCUSATE SODIUM 100 MG (COLACE) CAP PO SCH (19:48)
[2019-02-09] MEDS ORDERED: LABETALOL 200 MG (NORMODYNE) TAB PO SCH (21:00)
--- NOTE | 2019-02-09 22:00 | OPERATIVE REPORT ---
DATE OF SERVICE: 02/09/2019 DELIVERY NOTE The patient delivered by term spontaneous vaginal delivery a viable female infant with Apgars of 5, 8 and 9 at 1, 5 and 10 minutes respectively. time of 14:24. Weight of 5 pounds 13 ounces and a cord blood pH is 7.28. The was delivered over an intact perineum under epidural analgesia. A single nuchal cord was easily released. The umbilical cord was doubly clamped, father cut the cord, the baby was passed transiently to mom's abdomen. The baby was somewhat lethargic and was taken fairly promptly to the warmer by the nurses where the patient was dried, stimulated and recovered uneventfully. The placenta delivered spontaneously Shanks. There was a significant amount of bleeding just prior to the delivery of the baby and this continued after delivery of the baby until the placenta delivered. It was found that there was about 5% area of the 1 edge of the placenta that had abrupted and the bulk of the membranes remained in the uterine cavity having from the placenta around the margin of a circumvallate placenta. The placenta was sent to pathology for permanent section. The patient's uterus was massaged. The patient was given IV Pitocin and continued to bleed fairly notably. Pitocin was increased. Uterine massage was continued. On palpation, there were membranes inside the uterus. Butch's curette was used to curettage the endometrial cavity with removal of A notable amount of membranous tissue. The placenta had been delivered intact. The patient was given a single dose of Hemabate IM after confirming from the pharmacy that the patient's preeclampsia was not a contraindication to the use of Hemabate. It had a bit the desired effect promptly minimizing her blood loss, although her blood pressure was elevated little bit after giving the Hemabate. With blood loss eventually controlled and in the neighborhood of 800 mL. The cervix, vagina, rectum, and perineum were examined and found intact, except for a very small superficial periurethral abrasion. The patient remained in the LDR for recovery. The baby remained with the mom. Sponge and needle counts were correct on completion of the delivery and the curettaged due to the bleeding. Estimated blood loss within the neighborhood of 800 to 1000 mL at that point. The patient was eventually started on magnesium. Sarmiento catheter was left to dependent drain secondary to her preeclampsia and her persistently elevated blood pressures. Job ID: [id number] DocumentID: [id number] Dictated Date: 02/09/2019 18:14:50 [employer] Date: 02/09/2019 21:59:02 Dictated By: JOSE MANUEL DAWSON MD MTDD
[2019-02-10] VITALS (12 sets, daily range): BP systolic 117–142; BP diastolic 2–87
[2019-02-10] MEDS: ceFAZolin INJECTION 1,000 MG in WATER (STERILE) FOR INJECTION 10 ML IV SCH ×2 (00:50→06:07)
[2019-02-10] MEDS: MAGNESIUM SULFATE DRIP 500 ML IV SCH (02:06)
[2019-02-10] MEDS: KETOROLAC 30 MG/ML VIAL IVP SCH (02:41)
[2019-02-10 06:09] LABS: MEAN PLATELET VOLUME 11.4 FL (7.4-10.4); RED CELL DISTRIBUTION WIDTH 13.4 % (10.0-14.5)
[2019-02-10 06:28] LABS: ALANINE AMINOTRANSFERASE 14 U/L (0-55); ALBUMIN 2.7 GM/DL (3.2-4.5); ALKALINE PHOSPHATASE 105 U/L (40-136); BILIRUBIN,TOTAL 0.2 MG/DL (0.1-1.0); BUN/CREATININE RATIO 8; CALCIUM 7.4 MG/DL (8.5-10.1); CARBON DIOXIDE 22 MMOL/L (21-32); CHLORIDE 107 MMOL/L (98-107); CREATININE SERUM 0.63 MG/DL (0.60-1.30); GFR ESTIMATED > 60; GLUCOSE 121 MG/DL (70-105); POTASSIUM 3.7 MMOL/L (3.6-5.0); SODIUM 138 MMOL/L (135-145); TOTAL PROTEIN 4.8 GM/DL (6.4-8.2); URIC ACID 4.5 MG/DL (2.6-7.2)
--- NOTE | 2019-02-10 07:25 | NUR ---
Patient reports feeling like she needs to have a BM. Patient assisted up to restroom without difficulty. Patient unable to pass stool. Pericare completed and clean pad/panties applied. Patient ambulated back to bed without difficulty. Patient denies feeling lightheaded or dizzy.
--- NOTE | 2019-02-10 07:42 | NUR ---
AM shift assessment completed and vital signs obtained, see interventions. Plan of care reviewed with patient. Patient verbalizes understanding and questions answered.
--- NOTE | 2019-02-10 07:48 | NUR ---
Dr. Stanley called to check on patient's status. New orders received.
[2019-02-10] MEDS ORDERED: IBUPROFEN 800 MG (MOTRIN) TAB PO ONE (07:54)
[2019-02-10] MEDS: DOCUSATE SODIUM 100 MG (COLACE) CAP PO SCH ×2 (08:00→20:39)
[2019-02-10] MEDS: IBUPROFEN 800 MG (MOTRIN) TAB PO SCH ×3 (08:00→20:39)
[2019-02-10] MEDS: LABETALOL 200 MG (NORMODYNE) TAB PO SCH ×2 (08:00→20:39)
[2019-02-10] MEDS: oxyCODONE/APAP 5/325MG (PERCOCET 5) TABLET PO PRN ×2 (08:00→19:02)
--- NOTE | 2019-02-10 08:00 | NUR ---
Scheduled Motrin, Colace, and Labetalol PO given at this time. Percocet 1 PO given for patient's c/o pain rated 7-8/10.
--- NOTE | 2019-02-10 08:06 | NUR ---
IV heplocked and mclaughlin catheter DC'd (300 cc clear urine noted).
--- NOTE | 2019-02-10 09:15 | NUR ---
Dr. Stanley to patient's room to see patient. New orders received.
--- NOTE | 2019-02-10 09:35 | Progress Note-Standard ---
Standard Progress Note Progress Notes/Assess & Plan Date Seen by a Provider: Feb 10, 2019 Time Seen by a Provider: 09:33 Progress/Assessment & Plan Patient is without complaint. Her headache has waxed and waned. She denies rupture membranes or bleeding. She has been started on Pitocin this morning for induction of labor secondary to her preeclampsia. Vital Signs Date Time Temp Pulse Resp B/P (MAP) Pulse Ox O2 Delivery O2 Flow Rate FiO2 02/09/19 07:05 88 16 129/88 (102) Room Air 02/09/19 06:50 83 16 131/90 (104) Room Air 02/09/19 06:35 78 16 129/91 (104) Room Air 02/09/19 06:20 73 16 125/88 (100) Room Air 02/09/19 06:05 97.2 76 16 136/90 (105) Room Air 02/09/19 04:10 98.1 90 16 126/74 (91) 98 Room Air 02/09/19 00:10 97.8 83 16 125/80 (95) 98 Room Air 02/08/19 20:57 97.2 102 20 142/92 (109) Room Air 02/08/19 16:09 98.4 86 18 128/81 (97) Room Air 02/08/19 12:00 93 18 135/85 (102) Room Air 02/08/19 11:30 98.5 90 18 132/80 (97) Room Air 02/08/19 11:26 85 18 128/77 (94) Room Air 02/08/19 11:15 93 18 139/92 (108) 99 Room Air 02/08/19 10:58 84 18 138/96 (110) 99 Room Air Vital signs are stable. Blood pressures have been somewhat labile but acceptable. Patient is afebrile. The abdomen is gravid and nontender. Extremities show no clubbing cyanosis. There is some pretibial pitting edema. There is no Homans sign. Pelvic exam shows a cervix 3 cm dilated over 50 percent effaced -1 station vertex presentation with intact membranes. Amniotomy is performed with release of clear fluid. Assessment and plan hospital day 2 now at 37 weeks gestation with preeclampsia. Plan is for induction of labor with Pitocin anticipation is for vaginal delivery. Patient does appear to have a urinary tract infection and has been started empirically on Ancef pending a culture February 10, 2019 Patient without complaint. She is ambulating, tolerating oral intake well has good pain control. Her Sarmiento catheter has been removed. She denies headache. She denies nausea or vomiting. She has good pain control. Vital Signs Date Time Temp Pulse Resp B/P (MAP) Pulse Ox O2 Delivery O2 Flow Rate FiO2 02/10/19 06:00 98.1 76 18 119/87 (98) 94 Room Air 02/10/19 05:00 103 18 124/75 (91) 97 Room Air 02/10/19 04:00 82 18 117/72 (87) 98 Room Air 02/10/19 03:00 89 18 124/78 (93) 100 Room Air 02/10/19 02:00 97.9 88 18 126/81 (96) 98 Room Air 02/10/19 01:00 80 18 117/72 (87) 99 Room Air 02/10/19 00:00 81 18 120/82 (95) 100 Room Air 02/09/19 23:00 85 18 140/81 (100) 100 Room Air 02/09/19 22:00 101 18 124/83 (97) 100 Room Air 02/09/19 21:00 99 18 138/89 (105) 100 Room Air 02/09/19 20:18 91 18 128/88 (101) 100 Room Air 02/09/19 19:40 97.9 84 18 125/77 (93) 96 Room Air 02/09/19 17:50 84 18 129/71 (90) Room Air 02/09/19 17:15 96.3 100 18 129/69 (89) Room Air 02/09/19 17:00 105 18 126/57 (80) Room Air 02/09/19 16:45 103 18 136/66 (89) Room Air 02/09/19 16:30 103 18 171/77 (108) Room Air 02/09/19 16:15 108 18 136/66 (89) Room Air 02/09/19 16:00 111 18 153/77 (102) Room Air 02/09/19 15:45 115 18 140/75 (96) Room Air 02/09/19 15:30 97 18 160/97 (118) Room Air 02/09/19 15:13 100 18 152/93 (112) Room Air 02/09/19 15:09 98 18 154/63 (93) Room Air 02/09/19 15:00 100 18 154/93 (113) Room Air 02/09/19 14:45 117 18 154/95 (114) Room Air 02/09/19 14:22 Non Rebreather 10.00 02/09/19 14:15 121 18 187/103 (131) Room Air 02/09/19 14:00 100 18 160/88 (112) 100 Room Air 02/09/19 13:45 97.1 110 18 166/78 (107) 100 Room Air 02/09/19 13:30 119 18 149/88 (108) 100 Room Air 02/09/19 13:15 116 18 161/100 (120) 100 Room Air 02/09/19 13:00 120 18 149/101 (117) 100 Room Air 02/09/19 12:53 96 169/108 (128) 100 Room Air 02/09/19 12:47 96 165/99 (121) 100 Room Air 02/09/19 12:45 99 18 161/95 (117) 100 Room Air 02/09/19 12:42 98 20 173/98 (123) 100 Room Air 02/09/19 12:36 95 183/102 (129) 100 Room Air 02/09/19 12:30 146 18 187/117 (140) 98 Room Air 02/09/19 12:15 81 18 130/76 (94) 98 Room Air 02/09/19 12:00 90 18 141/98 (112) 99 Room Air 02/09/19 11:45 82 18 145/94 (111) 99 Room Air 02/09/19 11:30 82 18 145/94 (111) 99 Room Air 02/09/19 11:15 82 18 157/91 (113) 100 Room Air 02/09/19 11:00 79 18 148/94 (112) 100 Room Air 02/09/19 10:45 81 18 155/93 (113) 100 Room Air 02/09/19 10:30 81 18 140/89 (106) 100 Room Air 02/09/19 10:15 82 18 140/89 (106) 100 Room Air 02/09/19 10:00 80 18 139/87 (104) 100 Room Air 02/09/19 09:45 80 18 136/87 (103) 100 Room Air I & O 02/10/19 07:00 Intake Total 3430 ml Output Total 1700 ml Balance 1730 ml Signs are stable. Patient is afebrile. Her blood pressures were normalizing now on the labetalol. She is diuresing well. Laboratory Tests Test 02/10/19 06:02 Range/Units White Blood Count 9.0 4.3-11.0 10^3/uL Red Blood Count 2.58 L 4.35-5.85 10^6/uL Hemoglobin 8.0 #L 11.5-16.0 G/DL Hematocrit 24 L 35-52 % Mean Corpuscular Volume 94 80-99 FL Mean Corpuscular Hemoglobin 31 25-34 PG Mean Corpuscular Hemoglobin Concent 33 32-36 G/DL Red Cell Distribution Width 13.4 10.0-14.5 % Platelet Count 131 130-400 10^3/uL Mean Platelet Volume 11.4 H 7.4-10.4 FL Sodium Level 138 135-145 MMOL/L Potassium Level 3.7 3.6-5.0 MMOL/L Chloride Level 107 98-107 MMOL/L Carbon Dioxide Level 22 21-32 MMOL/L Anion Gap 9 5-14 MMOL/L Blood Urea Nitrogen 5 L 7-18 MG/DL Creatinine 0.63 0.60-1.30 MG/DL Estimat Glomerular Filtration Rate > 60 BUN/Creatinine Ratio 8 Glucose Level 121 H 70-105 MG/DL Uric Acid 4.5 2.6-7.2 MG/DL Calcium Level 7.4 L 8.5-10.1 MG/DL Corrected Calcium 8.4 L 8.5-10.1 MG/DL Total Bilirubin 0.2 0.1-1.0 MG/DL Aspartate Amino Transf (AST/SGOT) 22 5-34 U/L Alanine Aminotransferase (ALT/SGPT) 14 0-55 U/L Alkaline Phosphatase 105 40-136 U/L Lactate Dehydrogenase 229 H 125-220 U/L Total Protein 4.8 L 6.4-8.2 GM/DL Albumin 2.7 L 3.2-4.5 GM/DL Lab work is stable/reassuring The abdomen is benign. Fundus firm below the umbilicus and nontender. Extreme show no clubbing cyanosis. Homans sign. A notable pretibial pitting e tarik. Assessment and plan day number 1 status post 37 week spontaneous vaginal delivery with mild post hemorrhage. Patient's hemoglobin is 8 and she is stable she will receive iron supplementation. Her blood pressures have begun to normalize we will continue the labetalol in the short-term. We'll continue routine, Vesicare today and consider discharge home tomorrow if she remains stable JOSE MANUEL DAWSON MD Feb 10, 2019 09:35
[2019-02-10] MEDS ORDERED: FERR-84 PO (09:37)
[2019-02-10] MEDS ORDERED: LABE200T7 PO (09:37)
[2019-02-10] MEDS ORDERED: FERROUS SULF 325 MG (IRON) TAB PO ONE (10:17)
[2019-02-10] MEDS: FERROUS SULF 325 MG (IRON) TAB PO SCH (10:22)
--- NOTE | 2019-02-10 10:22 | NUR ---
Iron 325mg PO given per order.
--- NOTE | 2019-02-10 10:30 | Anesthesia-Regional Post-Op ---
Regional Patient Condition Mental Status: Alert, Oriented x3 Circulation: Same as Pre-Op Headache: Absent Sensation: Full Recovery Motor Block: Absent Post Op Complications Complications None Follow Up Care/Instructions Patient Instructions None needed. Anesthesia/Patient Condition Patient is doing well, no complaints, stable vital signs, no apparent adverse anesthesia problems. No complications reported per nursing. Patient did state that she did not feel like her epidural worked well. She stated it was a right-sided block and she was quite uncomfortable. The patient also noted she had some hemorrhaging prior to the delivery and just did not feel well in general. She is sitting in bed this am, quite alert, has been up ambulating, and feels good this am. D/C home per [facility] Criteria: Yes KIEL HALLMAN CRNA Feb 10, 2019 10:30
[2019-02-10] MEDS: CEPHALEXIN 250 MG (KEFLEX) CAP PO SCH ×2 (13:49→20:39)
--- NOTE | 2019-02-10 13:49 | NUR ---
Scheduled Motrin and Keflex PO given. Patient denies any further needs or concerns at this time.
--- NOTE | 2019-02-10 21:02 | NUR ---
pt sitting up in bed. s/o at bedside. assessment completed. pt denies any needs at this time. will continue to monitor.
[2019-02-11] MEDS: IBUPROFEN 800 MG (MOTRIN) TAB PO SCH (03:07)
[2019-02-11 03:46] VITALS: BP 122/67
[2019-02-11 08:20] VITALS: BP 134/76
[2019-02-11] MEDS ORDERED: HYDR-3870 PO (09:02)
[2019-02-11] MEDS ORDERED: CEPH-507 PO (09:02)
--- NOTE | 2019-02-11 09:05 | Progress Note-Standard ---
Standard Progress Note Progress Notes/Assess & Plan Date Seen by a Provider: Feb 11, 2019 Time Seen by a Provider: 09:03 Progress/Assessment & Plan Patient is without complaint. Her headache has waxed and waned. She denies rupture membranes or bleeding. She has been started on Pitocin this morning for induction of labor secondary to her preeclampsia. Vital Signs Date Time Temp Pulse Resp B/P (MAP) Pulse Ox O2 Delivery O2 Flow Rate FiO2 02/09/19 07:05 88 16 129/88 (102) Room Air 02/09/19 06:50 83 16 131/90 (104) Room Air 02/09/19 06:35 78 16 129/91 (104) Room Air 02/09/19 06:20 73 16 125/88 (100) Room Air 02/09/19 06:05 97.2 76 16 136/90 (105) Room Air 02/09/19 04:10 98.1 90 16 126/74 (91) 98 Room Air 02/09/19 00:10 97.8 83 16 125/80 (95) 98 Room Air 02/08/19 20:57 97.2 102 20 142/92 (109) Room Air 02/08/19 16:09 98.4 86 18 128/81 (97) Room Air 02/08/19 12:00 93 18 135/85 (102) Room Air 02/08/19 11:30 98.5 90 18 132/80 (97) Room Air 02/08/19 11:26 85 18 128/77 (94) Room Air 02/08/19 11:15 93 18 139/92 (108) 99 Room Air 02/08/19 10:58 84 18 138/96 (110) 99 Room Air Vital signs are stable. Blood pressures have been somewhat labile but acceptable. Patient is afebrile. The abdomen is gravid and nontender. Extremities show no clubbing cyanosis. There is some pretibial pitting edema. There is no Homans sign. Pelvic exam shows a cervix 3 cm dilated over 50 percent effaced -1 station vertex presentation with intact membranes. Amniotomy is performed with release of clear fluid. Assessment and plan hospital day 2 now at 37 weeks gestation with preeclampsia. Plan is for induction of labor with Pitocin anticipation is for vaginal delivery. Patient does appear to have a urinary tract infection and has been started empirically on Ancef pending a culture February 10, 2019 Patient without complaint. She is ambulating, tolerating oral intake well has good pain control. Her Sarmiento catheter has been removed. She denies headache. She denies nausea or vomiting. She has good pain control. Vital Signs Date Time Temp Pulse Resp B/P (MAP) Pulse Ox O2 Delivery O2 Flow Rate FiO2 02/10/19 06:00 98.1 76 18 119/87 (98) 94 Room Air 02/10/19 05:00 103 18 124/75 (91) 97 Room Air 02/10/19 04:00 82 18 117/72 (87) 98 Room Air 02/10/19 03:00 89 18 124/78 (93) 100 Room Air 02/10/19 02:00 97.9 88 18 126/81 (96) 98 Room Air 02/10/19 01:00 80 18 117/72 (87) 99 Room Air 02/10/19 00:00 81 18 120/82 (95) 100 Room Air 02/09/19 23:00 85 18 140/81 (100) 100 Room Air 02/09/19 22:00 101 18 124/83 (97) 100 Room Air 02/09/19 21:00 99 18 138/89 (105) 100 Room Air 02/09/19 20:18 91 18 128/88 (101) 100 Room Air 02/09/19 19:40 97.9 84 18 125/77 (93) 96 Room Air 02/09/19 17:50 84 18 129/71 (90) Room Air 02/09/19 17:15 96.3 100 18 129/69 (89) Room Air 02/09/19 17:00 105 18 126/57 (80) Room Air 02/09/19 16:45 103 18 136/66 (89) Room Air 02/09/19 16:30 103 18 171/77 (108) Room Air 02/09/19 16:15 108 18 136/66 (89) Room Air 02/09/19 16:00 111 18 153/77 (102) Room Air 02/09/19 15:45 115 18 140/75 (96) Room Air 02/09/19 15:30 97 18 160/97 (118) Room Air 02/09/19 15:13 100 18 152/93 (112) Room Air 02/09/19 15:09 98 18 154/63 (93) Room Air 02/09/19 15:00 100 18 154/93 (113) Room Air 02/09/19 14:45 117 18 154/95 (114) Room Air 02/09/19 14:22 Non Rebreather 10.00 02/09/19 14:15 121 18 187/103 (131) Room Air 02/09/19 14:00 100 18 160/88 (112) 100 Room Air 02/09/19 13:45 97.1 110 18 166/78 (107) 100 Room Air 02/09/19 13:30 119 18 149/88 (108) 100 Room Air 02/09/19 13:15 116 18 161/100 (120) 100 Room Air 02/09/19 13:00 120 18 149/101 (117) 100 Room Air 02/09/19 12:53 96 169/108 (128) 100 Room Air 02/09/19 12:47 96 165/99 (121) 100 Room Air 02/09/19 12:45 99 18 161/95 (117) 100 Room Air 02/09/19 12:42 98 20 173/98 (123) 100 Room Air 02/09/19 12:36 95 183/102 (129) 100 Room Air 02/09/19 12:30 146 18 187/117 (140) 98 Room Air 02/09/19 12:15 81 18 130/76 (94) 98 Room Air 02/09/19 12:00 90 18 141/98 (112) 99 Room Air 02/09/19 11:45 82 18 145/94 (111) 99 Room Air 02/09/19 11:30 82 18 145/94 (111) 99 Room Air 02/09/19 11:15 82 18 157/91 (113) 100 Room Air 02/09/19 11:00 79 18 148/94 (112) 100 Room Air 02/09/19 10:45 81 18 155/93 (113) 100 Room Air 02/09/19 10:30 81 18 140/89 (106) 100 Room Air 02/09/19 10:15 82 18 140/89 (106) 100 Room Air 02/09/19 10:00 80 18 139/87 (104) 100 Room Air 02/09/19 09:45 80 18 136/87 (103) 100 Room Air I & O 02/10/19 07:00 Intake Total 3430 ml Output Total 1700 ml Balance 1730 ml Signs are stable. Patient is afebrile. Her blood pressures were normalizing now on the labetalol. She is diuresing well. Laboratory Tests Test 02/10/19 06:02 Range/Units White Blood Count 9.0 4.3-11.0 10^3/uL Red Blood Count 2.58 L 4.35-5.85 10^6/uL Hemoglobin 8.0 #L 11.5-16.0 G/DL Hematocrit 24 L 35-52 % Mean Corpuscular Volume 94 80-99 FL Mean Corpuscular Hemoglobin 31 25-34 PG Mean Corpuscular Hemoglobin Concent 33 32-36 G/DL Red Cell Distribution Width 13.4 10.0-14.5 % Platelet Count 131 130-400 10^3/uL Mean Platelet Volume 11.4 H 7.4-10.4 FL Sodium Level 138 135-145 MMOL/L Potassium Level 3.7 3.6-5.0 MMOL/L Chloride Level 107 98-107 MMOL/L Carbon Dioxide Level 22 21-32 MMOL/L Anion Gap 9 5-14 MMOL/L Blood Urea Nitrogen 5 L 7-18 MG/DL Creatinine 0.63 0.60-1.30 MG/DL Estimat Glomerular Filtration Rate > 60 BUN/Creatinine Ratio 8 Glucose Level 121 H 70-105 MG/DL Uric Acid 4.5 2.6-7.2 MG/DL Calcium Level 7.4 L 8.5-10.1 MG/DL Corrected Calcium 8.4 L 8.5-10.1 MG/DL Total Bilirubin 0.2 0.1-1.0 MG/DL Aspartate Amino Transf (AST/SGOT) 22 5-34 U/L Alanine Aminotransferase (ALT/SGPT) 14 0-55 U/L Alkaline Phosphatase 105 40-136 U/L Lactate Dehydrogenase 229 H 125-220 U/L Total Protein 4.8 L 6.4-8.2 GM/DL Albumin 2.7 L 3.2-4.5 GM/DL Lab work is stable/reassuring The abdomen is benign. Fundus firm below the umbilicus and nontender. Extreme show no clubbing cyanosis. Homans sign. A notable pretibial pitting e tarik. Assessment and plan day number 1 status post 37 week spontaneous vaginal delivery with mild post hemorrhage. Patient's hemoglobin is 8 and she is stable she will receive iron supplementation. Her blood pressures have begun to normalize we will continue the labetalol in the short-term. We'll continue routine, Vesicare today and consider discharge home tomorrow if she remains stable February 11, 2019 Patient is without complaint. She is ambulating, voiding, tolerating oral intake well and has good pain control. Patient denies chest pain, denies shortness of breath, denies nausea vomiting, and denies headache. Vital Signs Date Time Temp Pulse Resp B/P (MAP) Pulse Ox O2 Delivery O2 Flow Rate FiO2 02/11/19 03:46 98.2 102 16 122/67 (85) 98 Room Air 02/10/19 22:30 98.2 101 16 142/83 (102) 98 Room Air 02/10/19 16:20 98.5 99 16 134/65 (88) 98 Room Air 02/10/19 12:33 98.3 90 16 122/2 (42) 99 Room Air I & O 02/11/19 07:00 Intake Total 1410 ml Output Total 300 ml Balance 1110 ml Signs are stable. Patient is afebrile. Blood pressures were acceptable on the labetalol. Fundus is firm below the umbilicus and nontender. Should show clubbing cyanosis. There is no Homans sign. There is some notable pretibial pitting edema. Assessment and plan day number 2 status post term spontaneous vag inal delivery at 37 weeks gestation after induction with Pitocin due to preeclampsia. Patient has been maintained on magnesium for 24 hours plus or minus after delivery and now is stable on labetalol. Vaginal discharge home with follow-up in clinic JOSE MANUEL DAWSON MD Feb 11, 2019 09:05
--- NOTE | 2019-02-11 09:09 | Discharge Summary ---
Discharge Summary 37 week spontaneous vaginal delivery This patient is a 23-year-old white female who was admitted on February 08, 2019 secondary to preeclampsia. 36-6/7 weeks gestation and found to have mild preeclampsia and therefore she was observed through the night and in the morning of 02-09 was induced with Pitocin secondary to preeclampsia now being at 37 weeks gestation. She did labor adequately and subsequently had a term spontaneous vaginal delivery. She did experience some significant elevations with blood pressure during labor I would treated with hydralazine to that effect. She also experienced hemorrhage that eventually was controlled with Pitocin massage and Hemabate. Patient has been stable now since delivery. Admission lab work was consistent with urinary tract infection for which she was started on Ancef IV On day number 1 patient's hemoglobin was down to 8 but she was relatively asymptomatic and declined blood transfusion. She was stable through the day. Her repeat lab work was reassuring in regard to the preeclampsia. Now on day number 2 she is ambulating, voiding, tolerating oral intake well had good pain control. Her vital signs are stable. She is requesting discharge home. Principal diagnoses this hospitalization is 37 week spontaneous vaginal delivery Secondary diagnoses are preeclampsia, anemia, urinary tract infection Operation procedures include monitoring epidural analgesia IV antibiotics spontaneous vaginal delivery Patient was given appropriate discharge instructions verbally and in writing and copy of our in the chart. Discharge medications are Lorcet, labetalol, Motrin, Colace, and Keflex Clinical Quality Measures DVT/VTE Risk/Contraindication: Risk Factor Score Per Nursin RFS Level Per Nursing on Admit: 1=Low/No VTE PPX JOSE MANUEL DAWSON MD Feb 11, 2019 09:09
[2019-02-11] MEDS: DOCUSATE SODIUM 100 MG (COLACE) CAP PO SCH (09:40)
[2019-02-11] MEDS: FERROUS SULF 325 MG (IRON) TAB PO SCH (09:40)
[2019-02-11] MEDS: CEPHALEXIN 250 MG (KEFLEX) CAP PO SCH (09:40)
[2019-02-11] MEDS: LABETALOL 200 MG (NORMODYNE) TAB PO SCH (09:40)
--- NOTE | 2019-02-11 14:20 | NUR ---
reviewed d/c instructions with patient. verbalized understanding. no s/s of distress noted.
--- NOTE | 2019-02-11 16:00 | NUR ---
JAN ENRIQUE demonstrates understanding of discharge instructions and accurately returns instructions upon questioning. Copy of Post-Discharge Instructions and Medication Discharge Instructions given to patient. JAN ENRIQUE is able to manage continuing needs after discharge. Patients belongings returned to patient. Skin dry and intact; no breakdown noted. Patient discharged from [id number] on 02-12-19 at 1600. JAN ENRIQUE left floor via ambulation, accompanied by staff. Addendum: 02/11/19 at 1639 by SHAYNA CANTU RN on 02/11/19
== END 2019-02-11 16:00 | disposition home or self-care (01) | DRG 805 ==
LOC: LDRP 10:40
PROVIDERS: ADMIT Obstetrics & Gynecology; ATTEND Obstetrics & Gynecology
PROC: 10E0XZZ Delivery of Products of Conception, External Approach (ICD-10-PCS; principal; 2019-02-09)
PROC: 10D17Z9 Manual Extraction of Products of Conception, Retained, Via Natural or Artificial Opening (ICD-10-PCS; 2019-02-09)
DX: O14.93 Unspecified pre-eclampsia, third trimester (principal); O45.93 Premature separation of placenta, unspecified, third trimester; O72.2 Delayed and secondary postpartum hemorrhage; O23.43 Unspecified infection of urinary tract in pregnancy, third trimester; O69.81X0 Labor and delivery complicated by cord around neck, without compression, not applicable or unspecified; O90.81 Anemia of the puerperium; Z3A.37 37 weeks gestation of pregnancy; Z37.0 Single live birth
CPT/HCPCS: 36415; 80053; 81000; 82570; 83615; 84156; 84550; 85027; 86850; 86900; 86901; 87088; 88307

== ENCOUNTER 2020-01-18 10:21 | Emergency (ER) | payer MEDICAID, OTHER ==
[~2020-01-18] VITALS: Ht 167 cm; Wt 80.0 kg
[~2020-01-18 10:21] MED LIST changes: +CEPH-507 PO; +CITA20TA12 PO; +CYCL10TA9 PO; +FERR-84 PO; +HYDR-3870 PO; +LABE200T7 PO; +OXYC1TAB87 PO
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
[2020-01-18 11:02] LABS: BASOPHILS % (AUTO) 1 % (0-10); EOSINOPHILS % (AUTO) 7 % (0-10); HEMATOCRIT 41 % (35-52); HEMOGLOBIN 13.9 G/DL (11.5-16.0); LYMPHOCYTES % (AUTO) 38 % (12-44); MEAN CORPUSCULAR HEMOGLOBIN 31 PG (25-34); MEAN CORPUSCULAR HGB CONC 34 G/DL (32-36); MEAN CORPUSCULAR VOLUME 91 FL (80-99); MONOCYTES % (AUTO) 8 % (0-12); NEUTROPHILS % (AUTO) 46 % (42-75); PLATELET COUNT 225 10^3/uL (130-400); RED CELL DISTRIBUTION WIDTH 12.3 % (10.0-14.5)
[2020-01-18 11:03] LABS: BASOPHILS # (AUTO) 0.1 10^3/uL (0.0-0.1); EOSINOPHILS # (AUTO) 0.3 10^3/uL (0.0-0.3); LYMPHOCYTES # (AUTO) 1.9 X 10^3 (1.0-4.0); MONOCYTES # (AUTO) 0.4 X 10^3 (0.0-1.0); NEUTROPHILS # (AUTO) 2.3 X 10^3 (1.8-7.8)
[2020-01-18 11:26] LABS: COLOR,URINE YELLOW
[2020-01-18 11:27] LABS: BACTERIA,URINE MODERATE /HPF; BILIRUBIN,URINE NEGATIVE (NEGATIVE); CLARITY,URINE SL CLOUDY; GLUCOSE, URINE (UA) NEGATIVE (NEGATIVE); KETONES,URINE NEGATIVE (NEGATIVE); LEUKOCYTE ESTERASE ,URINE 2+ (NEGATIVE); NITRITE,URINE NEGATIVE (NEGATIVE); PH,URINE 6.5 (5-9); PROTEIN,URINE NEGATIVE (NEGATIVE)
[2020-01-18 11:28] LABS: AMPHETAMINE SCREEN, URINE NEGATIVE (NEGATIVE); BARBITURATE SCREEN URINE NEGATIVE (NEGATIVE); BENZODIAZEPINES SCREEN URINE NEGATIVE (NEGATIVE); CANNABINOID SCREEN, URINE NEGATIVE (NEGATIVE); COCAINE SCREEN URINE NEGATIVE (NEGATIVE); HCG,QUALITATIVE URINE NEGATIVE (NEGATIVE); METHADONE STAT NEGATIVE (NEGATIVE); METHAMPHETAMINE SCREEN URINE S NEGATIVE (NEGATIVE); OPIATE SCREEN URINE NEGATIVE (NEGATIVE); OXYCODONE STAT NEGATIVE (NEGATIVE); PROPOXYPHENE STAT NEGATIVE (NEGATIVE); TRICYCLIC ANTIDEPRESSANTS SCRE NEGATIVE (NEGATIVE)
[2020-01-18 11:29] LABS: ALANINE AMINOTRANSFERASE 8 U/L (0-55); ALKALINE PHOSPHATASE 86 U/L (40-136); BILIRUBIN,TOTAL 0.9 MG/DL (0.1-1.0); BUN/CREATININE RATIO 20; CALCIUM 9.2 MG/DL (8.5-10.1); CARBON DIOXIDE 28 MMOL/L (21-32); CHLORIDE 103 MMOL/L (98-107); CREATININE SERUM 0.75 MG/DL (0.60-1.30); GFR ESTIMATED > 60; GLUCOSE 71 MG/DL (70-105); POTASSIUM 3.5 MMOL/L (3.6-5.0); SODIUM 144 MMOL/L (135-145)
--- OUTSIDE RECORDS SUMMARY | 2020-01-18 11:29 | XMS REPORT | Continuity of Care Document ---
Author Organization Unknown Address Unknown Phone Unavailable Allergies Active Description Code Type Severity Reaction Onset Reported/Identified Relationship to Patient Clinical Status Yes midazolam [id number] Drug Allergy Severe ANAPHYLAXIS 04/27/2017 Yes meperidine [id number] Drug Allerg y Unknown ANAPHYLAXIS 04/27/2017 Yes Sulfa (Sulfonamide Antibiotics) [id number] Drug Allergy Unknown RASH 017 Yes milk [id number] Drug Allergy Unknown N/A 02/08/2019 Medications There is no data. 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, THIRD TR 04/29/2017 JOSE MANUEL DAWSON MD, Ot O99.12 OTH DIS OF THE BLD/BLD-FORM ORG/IMMUN ME 04/29/2017 JOSE MANUEL DAWSON MD, Ot Z23 ENCOUNTER FOR IMMUNIZATION 04/29/2017 JOSE MANUEL DAWSON MD, Ot Z37.0 SINGLE LIVE 04/29/2017 JOSE MANUEL DAWSON MD, Ot Z3A.38 38 WEEKS GESTATION OF 02/05/2018 JOSE MANUEL DAWSON MD, Ot R19.7 DIARRHEA, UNSPECIFIED 02/06/2018 JOSE MANUEL DAWSON MD, Ot R19.7 DIARRHEA, UNSPECIFIED 02/08/2019 JOSE MANUEL DAWSON MD, Ot R19.7 DIARRHEA, UNSPECIFIED 02/08/2019 JOSE MANUEL DAWSON MD, Ot R19.7 DIARRHEA, UNSPECIFIED 02/11/2019 JOSE MANUEL DAWSON MD, Ot O14.93 UNSPECIFIED PRE-ECLAMPSIA, THIRD TRIMEST 02/11/2019 JOSE MANUEL DAWSON MD, Ot O23.43 UNSP INFCT OF URINARY TRACT IN 02/11/2019 JOSE MANUEL DAWSON MD, Ot O45.93 PREMATURE SEPARATION OF PLACENTA, UNSP, 02/11/2019 JOSE MANUEL DAWSON MD, Ot O69.81X0 LABOR AND DEL COMP BY CORD AROUND NECK, 02/11/2019 JOSE MANUEL DAWSON MD, Ot O72.2 DELAYED AND SECONDARY HEMORRH 02/11/2019 JOSE MANUEL DAWSON MD, Ot O90.81 ANEMIA OF THE PUERPERIUM 02/11/2019 JOSE MANUEL DAWSON MD, Ot Z37.0 SINGLE LIVE 02/11/2019 JOSE MANUEL DAWSON MD, Ot Z3A.37 37 WEEKS GESTATION OF 02/13/2019 JOSE MANUEL DAWSON MD, Ot O14.03 MILD TO MODERATE PRE-ECLAMPSIA, THIRD TR 02/21/2019 JOSE MANUEL DAWSON MD, Ot O14.03 MILD TO MODERATE PRE-ECLAMPSIA, THIRD TR Procedures Code Description Performed By Per formed On [id number] DI VISION OF FEMALE PERINEUM, EXTERNAL AP 04/27/2017 43I5MGQ DE LIVERY OF PRODUCTS OF CONCEPTION, EXTE 04/27/2017 [id number] IN TRODUCE OTH THERAP SUBST IN PERIPH VEI 04/27/2017 [id number] MA NUAL EXTRACTION OF RETAINED POC, VIA O 02/09/2019 [id number] DE LIVERY OF PRODUCTS OF CONCEPTION, EXTE 02/09/2019 Results Test Result Range Complete blood count (CBC) with automate d white blood cell (WBC) differential - 04/27/17 07:45 Blood leukocytes automated count (number/volume) 9.2 10*3/uL 4.3-11.0 Blood erythrocytes automated count (number/volume) 3.85 10*6/uL 4.35-5.85 Venous blood hemoglobin measurement (mass/volume) 12.3 g/dL 11.5-16.0 Blood hematocrit (volume fraction) 36 % 35-52 Automated erythrocyte mean corpuscular volume 92 [ foz_us] 80-99 Automated erythrocyte mean corpuscular h emoglobin (mass per erythrocyte) 32 pg 25-34 Automated erythrocyte mean corpuscular h emoglobin concentration measurement (mass/volume) 35 g/dL 32-36 Automated erythrocyte distribution width ratio 12. 9 % 10.0- 14.5 Automated blood platelet count (count/volume) 122 10*3/uL 130-400 Automated blood platelet mean volume measurement 11.8 [foz_us] 7.4-10.4 Automated blood neutrophils/100 leukocytes 59 % 42-75 Automated blood lymphocytes/100 leukocytes 24 % 12-44 Blood monocytes/100 leukocytes 10 % 0-12 Automated blood eosinophils/100 leukocytes 7 % 0-10 Automated blood basophils/100 leukocytes 1 % 0-10 Blood neutrophils automated count (number/volume) 5.4 10*3 1.8-7.8 Blood lymphocytes automated count (number/volume) 2.2 10*3 1.0-4.0 Blood monocytes automated count (number/volume) 0. 9 10*3 0.0-1.0 Automated eosinophil count 0.7 10*3/uL 0 .0-0.3 Automated blood basophil count (count/volume) 0.1 10*3/uL 0.0-0.1 Blood type T Indirect antibody screen pa colby - 04/27/17 07:45 ABO+Rh group AP NRG Transfusion band number [id number] NRG Blood group antibody screen NEGATIVE NR G Urine protein/creatinine mass ratio - 10:45 Urine protein measurement (mass/volume) 14 mg/dL 6-12 Urine creatinine measurement (mass/volume) 62 mg/d L 30-125 Urine protein/creatinine mass ratio 0.23 NRG Complete urinalysis with reflex to cultu re - 02/08/19 11:00 Urine color determination YELLOW NRG Urine clarity determination CLEAR NR G Urine pH measurement by test strip 8.0 5-9 Specific gravity of urine by test strip 1.010 1.016-1.022 Urine protein assay by test strip, semi-quantitative NEGATIVE NEGATIVE Urine glucose detection by automated test strip NE GATIVE NEGATIVE Erythrocytes detection in urine sediment by light micr oscopy NEGATIVE NEGATIVE Urine ketones detection by automated test strip NE GATIVE NEGATIVE Urine nitrite detection by test strip NEGATIVE NEGATIVE Urine total bilirubin detection by test strip NEGA TIVE NEGATIVE Urine urobilinogen measurement by automated test strip (mass/volume) 0.2 mg/dL NORMAL Urine leukocyte esterase detection by dipstick 3+ NEGATIVE Automated urine sediment erythrocyte cou nt by microscopy (number/high power field) NONE NRG Automated urine sediment leukocyte count by microscopy (number/high power field) [HPF] NRG Bacteria detection in urine sediment by light microsco py FEW NRG Squamous epithelial cells detection in u rine sediment by light microscopy 5-10 NRG Crystals detection in urine sediment by light microsco py NONE NRG Casts detection in urine sediment by light microscopy NONE NRG Mucus detection in urine sediment by light microscopy NEGATIVE NRG Complete urinalysis with reflex to culture YES NRG Urine protein/creatinine mass ratio - 11:00 Urine protein measurement (mass/volume) 10 mg/dL 6-12 Urine creatinine measurement (mass/volume) 37 mg/d L 30-125 Urine protein/creatinine mass ratio 0.27 NRG Bacterial urine culture - 02/08/19 11:00 Bacterial urine culture 3 OR MORE NRG COLONY COUNT 10,000 CFU/ML NRG FTX;REPORTABLE GRAM POSITIVES, SUGGESTING PROBABLE NRG FREE TEXT ENTRY 2 COLLECTION CONTAMINATION WITH SK IN NRG FREE TEXT ENTRY 3 KIRT. NO SUSCEPTIBILITY PERFOR MED. NRG Automated blood complete blood count (he mogram) panel - 02/08/19 11:13 Blood leukocytes automated count (number/volume) 9.3 10*3/uL 4.3-11.0 Blood erythrocytes automated count (number/volume) 3.51 10*6/uL 4.35-5.85 Venous blood hemoglobin measurement (mass/volume) 10.7 g/dL 11.5-16.0 Blood hematocrit (volume fraction) 32 % 35-52 Automated erythrocyte mean corpuscular volume 92 [ foz_us] 80-99 Automated erythrocyte mean corpuscular h emoglobin (mass per erythrocyte) 30 pg 25-34 Automated erythrocyte mean corpuscular h emoglobin concentration measurement (mass/volume) 33 g/dL 32-36 Automated erythrocyte distribution width ratio 13. 5 % 10.0- 14.5 Automated blood platelet count (count/volume) 130 10*3/uL 130-400 Automated blood platelet mean volume measurement 11.6 [foz_us] 7.4-10.4 Comprehensive metabolic panel - 02/08/19 11:13 Serum or plasma sodium measurement (moles/volume) 138 mmol/L 135-145 Serum or plasma potassium measurement (moles/volume) 3.4 mmol/L 3.6-5.0 Serum or plasma chloride measurement (moles/volume) 106 mmol/L 98-107 Carbon dioxide 21 mmol/L 21-32 Serum or plasma anion gap determination (moles/volume) 11 mmol/L 5-14 Serum or plasma urea nitrogen measurement (mass/volume ) 6 mg/dL 7-18 Serum or plasma creatinine measurement (mass/volume) 0.56 mg/dL 0.60-1.30 Serum or plasma urea nitrogen/creatinine mass ratio 11 NRG Serum or plasma creatinine measurement w ith calculation of estimated glomerular filtration rate > NRG Serum or plasma glucose measurement (mass/volume) 65 mg/dL 70-105 Serum or plasma calcium measurement (mass/volume) 9.3 mg/dL 8.5-10.1 Serum or plasma total bilirubin measurement (mass/volu me) 0.6 mg/dL 0.1-1.0 Serum or plasma alkaline phosphatase bertha surement (enzymatic activity/volume) 149 U/L 40-136 Serum or plasma aspartate aminotransfera se measurement (enzymatic activity/volume) 25 U/L 5-34 Serum or plasma alanine aminotransferase measurement (enzymatic activity/volume) 16 U/L 0-55 Serum or plasma protein measurement (mass/volume) 6.3 g/dL 6.4-8.2 Serum or plasma albumin measurement (mass/volume) 3.4 g/dL 3.2-4.5 CALCIUM CORRECTED 9.8 mg/dL 8.5-10.1 Serum or plasma uric acid measurement (m ass/volume) - 02/08/19 11:13 Serum or plasma uric acid measurement (mass/volume) 3.7 mg/dL 2.6-7.2 Serum ragweed IgE antibody assay - 02/08 11:13 Serum ragweed IgE antibody assay 203 U/L 125-220 Blood type T Indirect antibody screen pa colby - 02/08/19 11:13 ABO+Rh group AP NR Transfusion band number [id number] NR Blood group antibody screen NEGATIVE NR G Automated blood complete blood count (he mogram) panel - 02/10/19 06:02 Blood leukocytes automated count (number/volume) 9.0 10*3/uL 4.3-11.0 Blood erythrocytes automated count (number/volume) 2.58 10*6/uL 4.35-5.85 Venous blood hemoglobin measurement (mass/volume) 8.0 g/dL 11.5-16.0 Blood hematocrit (volume fraction) 24 % 35-52 Automated erythrocyte mean corpuscular volume 94 [ foz_us] 80-99 Automated erythrocyte mean corpuscular h emoglobin (mass per erythrocyte) 31 pg 25-34 Automated erythrocyte mean corpuscular h emoglobin concentration measurement (mass/volume) 33 g/dL 32-36 Automated erythrocyte distribution width ratio 13. 4 % 10.0- 14.5 Automated blood platelet count (count/volume) 131 10*3/uL 130-400 Automated blood platelet mean volume measurement 11.4 [foz_us] 7.4-10.4 Comprehensive metabolic panel - 02/10/19 06:02 Serum or plasma sodium measurement (moles/volume) 138 mmol/L 135-145 Serum or plasma potassium measurement (moles/volume) 3.7 mmol/L 3.6-5.0 Serum or plasma chloride measurement (moles/volume) 107 mmol/L 98-107 Carbon dioxide 22 mmol/L 21-32 Serum or plasma anion gap determination (moles/volume) 9 mmol/L 5-14 Serum or plasma urea nitrogen measurement (mass/volume ) 5 mg/dL 7-18 Serum or plasma creatinine measurement (mass/volume) 0.63 mg/dL 0.60-1.30 Serum or plasma urea nitrogen/creatinine mass ratio 8 NRG Serum or plasma creatinine measurement w ith calculation of estimated glomerular filtration rate > NRG Serum or plasma glucose measurement (mass/volume) 121 mg/dL 70-105 Serum or plasma calcium measurement (mass/volume) 7.4 mg/dL 8.5-10.1 Serum or plasma total bilirubin measurement (mass/volu me) 0.2 mg/dL 0.1-1.0 Serum or plasma alkaline phosphatase bertha surement (enzymatic activity/volume) 105 U/L 40-136 Serum or plasma aspartate aminotransfera se measurement (enzymatic activity/volume) 22 U/L 5-34 Serum or plasma alanine aminotransferase measurement (enzymatic activity/volume) 14 U/L 0-55 Serum or plasma protein measurement (mass/volume) 4.8 g/dL 6.4-8.2 Serum or plasma albumin measurement (mass/volume) 2.7 g/dL 3.2-4.5 CALCIUM CORRECTED 8.4 mg/dL 8.5-10.1 Serum or plasma uric acid measurement (m ass/volume) - 02/10/19 06:02 Serum or plasma uric acid measurement (mass/volume) 4.5 mg/dL 2.6-7.2 Serum ragweed IgE antibody assay - 02/10 06:02 Serum ragweed IgE antibody assay 229 U/L 125-220 Complete urinalysis with reflex to cultu re - 01/18/20 10:27 Urine color determination YELLOW NRG Urine clarity determination SL CLOUDY N RG Urine pH measurement by test strip 6.5 5-9 Specific gravity of urine by test strip 1.020 1.016-1.022 Urine protein assay by test strip, semi-quantitative NEGATIVE NEGATIVE Urine glucose detection by automated test strip NE GATIVE NEGATIVE Erythrocytes detection in urine sediment by light micr oscopy NEGATIVE NEGATIVE Urine ketones detection by automated test strip NE GATIVE NEGATIVE Urine nitrite detection by test strip NEGATIVE NEGATIVE Urine total bilirubin detection by test strip NEGA TIVE NEGATIVE Urine urobilinogen measurement by automated test strip (mass/volume) 0.2 mg/dL < = 1.0 Urine leukocyte esterase detection by dipstick 2+ NEGATIVE Automated urine sediment erythrocyte cou nt by microscopy (number/high power field) NONE NRG Automated urine sediment leukocyte count by microscopy (number/high power field) [HPF] NRG Bacteria detection in urine sediment by light microsco py MODERATE NRG Squamous epithelial cells detection in u rine sediment by light microscopy 10-25 NRG Crystals detection in urine sediment by light microsco py NONE NRG Casts detection in urine sediment by light microscopy NONE NRG Mucus detection in urine sediment by light microscopy MODERATE NRG Complete urinalysis with reflex to culture YES NRG Complete blood count (CBC) with automate d white blood cell (WBC) differential - 01/18/20 10:35 Blood leukocytes automated count (number/volume) 5.0 10*3/uL 4.3-11.0 Blood erythrocytes automated count (number/volume) 4.52 10*6/uL 4.35-5.85 Venous blood hemoglobin measurement (mass/volume) 13.9 g/dL 11.5-16.0 Blood hematocrit (volume fraction) 41 % 35-52 Automated erythrocyte mean corpuscular volume 91 [ foz_us] 80-99 Automated erythrocyte mean corpuscular h emoglobin (mass per erythrocyte) 31 pg 25-34 Automated erythrocyte mean corpuscular h emoglobin concentration measurement (mass/volume) 34 g/dL 32-36 Automated erythrocyte distribution width ratio 12. 3 % 10.0- 14.5 Automated blood platelet count (count/volume) 225 10*3/uL 130-400 Automated blood platelet mean volume measurement 10.0 [foz_us] 7.4-10.4 Automated blood neutrophils/100 leukocytes 46 % 42-75 Automated blood lymphocytes/100 leukocytes 38 % 12-44 Blood monocytes/100 leukocytes 8 % 0-12 Automated blood eosinophils/100 leukocytes 7 % 0-10 Automated blood basophils/100 leukocytes 1 % 0-10 Blood neutrophils automated count (number/volume) 2.3 10*3 1.8-7.8 Blood lymphocytes automated count (number/volume) 1.9 10*3 1.0-4.0 Blood monocytes automated count (number/volume) 0. 4 10*3 0.0-1.0 Automated eosinophil count 0.3 10*3/uL 0 .0-0.3 Automated blood basophil count (count/volume) 0.1 10*3/uL 0.0-0.1 Encounters ACCT No. Visit Date/Time Discharge Status Pt. Type Provider Facility Loc./Unit Complaint [id number] 09/07/2019 07:00:00 09/07/2019 23:59: 59 CLS Outpatient [facility] [id number] 02/16/2019 07:00:00 23:59:59 CLS Preadmit JOSE MANUEL DAWSON MD INDUCTION [id number] 02/08/2019 10:40:00 019 16:00:00 DIS Inpatient JOSE MANUEL DAWSON MD [facility] LDRP PREECLAMPSIA [id number] 02/06/2019 10:45:00 019 23:59:59 CLS Outpatient JOSE MANUEL DAWSON MD [facility] LABNPT [id number] 02/06/2018 00:09:00 018 23:59:59 CLS Preadmit JOSE MANUEL DAWSON MD [facility] LAB DIARRHEA [id number] 11/22/2017 13:57:00 018 00:01:00 DIS Outpatient JOSE MANUEL DAWSON MD [facility] LAB DIARRHEA [id number] 04/27/2017 07:10:00 017 15:15:00 DIS Inpatient JOSE MANUEL DAWSON MD [facility] LDRP OLIGO; THROMOBC YTOPENIA [id number] 01/18/2020 11:03:00 Document Registration
[2020-01-18 11:30] LABS: ACETAMINOPHEN < 10 UG/ML (10-30); ALBUMIN 4.4 GM/DL (3.2-4.5); SALICYLATE < 0.3 MG/DL (5.0-20.0); TOTAL PROTEIN 6.9 GM/DL (6.4-8.2)
--- NOTE | 2020-01-18 11:47 | NUR ---
TIANNA CALLED AT THIS TIME.
--- NOTE | 2020-01-18 11:58 | NUR ---
PTS SISTER AND MOM HAS CALLED AND THE PT GAVE VERBAL CONSENT TO RELEASE DETAILS OF HER STAY. [facility]MO FROM [facility] CALLED AT THIS TIME AND SETTING UP A SCREENING.
--- NOTE | 2020-01-18 12:16 | NUR ---
TIANNA MCGUIREOM AT THIS TIME.
[2020-01-18 14:00] VITALS: BP 114/72
--- NOTE | 2020-01-18 14:04 | NUR ---
SAFETY PLAN WITH MEGAN SIGNED AND RETURNED AT THIS TIME
== END 2020-01-18 14:00 | disposition home or self-care (01) ==
LOC: EDUNIT# 10:21 → ER FS 10:24
DX: R45.851 Suicidal ideations (principal); F41.9 Anxiety disorder, unspecified; F31.9 Bipolar disorder, unspecified; Z88.2 Allergy status to sulfonamides; Z88.8 Allergy status to other drugs, medicaments and biological substances; Z91.011 Allergy to milk products; Z88.5 Allergy status to narcotic agent; Z80.8 Family history of malignant neoplasm of other organs or systems; Z82.49 Family history of ischemic heart disease and other diseases of the circulatory system
CPT/HCPCS: 36415; 80053; 80306; 80320; 80329; 81000; 84703; 85025; 87088; 99284

== ENCOUNTER 2021-03-27 13:18 | Emergency (ER) | payer MEDICAID, OTHER ==
[~2021-03-27 13:18] MED LIST changes: -OXYC-465 PO; +OXYC-556 PO
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
[2021-03-27] MEDS ORDERED: LACTATED RINGERS 1,000 ML IV STA (13:51)
[2021-03-27] MEDS ORDERED: KETOROLAC 30 MG/ML VIAL IVP STA (14:28)
[2021-03-27 14:42] LABS: HEMATOCRIT 41 % (35-52); HEMOGLOBIN 13.7 G/DL (11.5-16.0); MEAN CORPUSCULAR HEMOGLOBIN 31 PG (25-34); MEAN CORPUSCULAR HGB CONC 34 G/DL (32-36); MEAN CORPUSCULAR VOLUME 91 FL (80-99); MEAN PLATELET VOLUME 10.9 FL (7.4-10.4); NEUTROPHILS % (AUTO) 53 % (42-75); PLATELET COUNT 238 10^3/uL (130-400); WHITE BLOOD COUNT 7.8 10^3/uL (4.3-11.0)
[2021-03-27 14:43] LABS: BASOPHILS # (AUTO) 0.1 10^3/uL (0.0-0.1); BASOPHILS % (AUTO) 1 % (0-10); EOSINOPHILS # (AUTO) 0.2 10^3/uL (0.0-0.3); EOSINOPHILS % (AUTO) 3 % (0-10); LYMPHOCYTES # (AUTO) 2.7 X 10^3 (1.0-4.0); LYMPHOCYTES % (AUTO) 35 % (12-44); MONOCYTES # (AUTO) 0.7 X 10^3 (0.0-1.0); MONOCYTES % (AUTO) 8 % (0-12); NEUTROPHILS # (AUTO) 4.2 X 10^3 (1.8-7.8)
[2021-03-27 14:48] LABS: BILIRUBIN,URINE NEGATIVE (NEGATIVE); CLARITY,URINE CLEAR; COLOR,URINE YELLOW; GLUCOSE, URINE (UA) NEGATIVE (NEGATIVE); KETONES,URINE NEGATIVE (NEGATIVE); NITRITE,URINE NEGATIVE (NEGATIVE); PH,URINE 5.5 (5-9); PROTEIN,URINE NEGATIVE (NEGATIVE)
[2021-03-27 14:49] LABS: BACTERIA,URINE FEW /HPF; LEUKOCYTE ESTERASE ,URINE TRACE (NEGATIVE)
[2021-03-27 14:51] LABS: POTASSIUM 3.8 MMOL/L (3.6-5.0); SODIUM 140 MMOL/L (135-145)
[2021-03-27 14:52] LABS: ALANINE AMINOTRANSFERASE 8 U/L (0-55); ALKALINE PHOSPHATASE 73 U/L (40-136); BILIRUBIN,TOTAL 0.4 MG/DL (0.1-1.0); BUN/CREATININE RATIO 12; CALCIUM 9.5 MG/DL (8.5-10.1); CARBON DIOXIDE 27 MMOL/L (21-32); CHLORIDE 104 MMOL/L (98-107); CREATININE SERUM 0.74 MG/DL (0.60-1.30); GFR ESTIMATED 96; GLUCOSE 89 MG/DL (70-105); TOTAL PROTEIN 6.8 GM/DL (6.4-8.2)
[2021-03-27 14:53] LABS: ALBUMIN 4.3 GM/DL (3.2-4.5)
[2021-03-27 15:23] LABS: ERYTHROCYTE SEDIMENTATION RATE 9 MM/HR (0-20)
[2021-03-27 15:31] VITALS: BP 101/68
== END 2021-03-27 15:30 | disposition home or self-care (01) ==
LOC: EDUNIT# 13:18 → ER FS 13:19
DX: R53.81 Other malaise (principal); R53.83 Other fatigue; F41.9 Anxiety disorder, unspecified; F32.9 Major depressive disorder, single episode, unspecified; Z20.822 Contact with and (suspected) exposure to COVID-19; Z79.899 Other long term (current) drug therapy
CPT/HCPCS: 36415; 80053; 81000; 84145; 84443; 84703; 85025; 85652; 86141; 87635; 96374; 99282

== ENCOUNTER 2021-03-30 14:51 | Emergency (ER) | payer MEDICAID ==
[~2021-03-30] VITALS: Ht 167 cm; Wt 82.0 kg
[2021-03-30] MEDS ORDERED: PROCHLORPERAZINE 10 MG/2ML INJ (COMPAZINE) ONE (15:20)
[2021-03-30] MEDS ORDERED: PROCHLORPERAZINE 10 MG/2ML INJ (COMPAZINE) IV ONE (15:30)
[2021-03-30] MEDS ORDERED: diphenhydrAMINE 50 MG/ML INJ (BENADRYL) IVP ONE (15:30)
--- NOTE | 2021-03-30 15:38 | Diagnostic Imaging Report ---
PROCEDURE: CT head without contrast. TECHNIQUE: Multiple contiguous axial images were obtained through the brain without the use of intravenous contrast. Auto Exposure Controls were utilized during the CT exam to meet ALARA standards for radiation dose reduction. INDICATION: Head pain. Incontinence. COMPARISON: No priors The exam is normal. The cerebral cortical volume was normal. There was no focal or generalized cerebral edema and there is no intracerebral hemorrhage, no mass or mass effect. No evidence for an elevation of the intracranial pressures. The basilar cisterns patent. There is no sulcal effacement. The orbits, sinuses and calvarium all appeared unremarkable. IMPRESSION: Normal CT head. Dictated by: Dictated on workstation # [id number]
[2021-03-30 15:56] VITALS: BP 116/82
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
== END 2021-03-30 16:01 | disposition home or self-care (01) ==
LOC: ER FS 14:55
DX: G43.909 Migraine, unspecified, not intractable, without status migrainosus (principal); F41.9 Anxiety disorder, unspecified; F31.9 Bipolar disorder, unspecified; F17.290 Nicotine dependence, other tobacco product, uncomplicated; Z88.2 Allergy status to sulfonamides; Z88.5 Allergy status to narcotic agent; Z88.8 Allergy status to other drugs, medicaments and biological substances; Z79.899 Other long term (current) drug therapy
CPT/HCPCS: 70450; 82947; 84703; 96374; 96375

== ENCOUNTER 2021-04-29 23:19 | Emergency (ER) | payer MEDICAID ==
[2021-04-29] MEDS ORDERED: NS IV 1000 ML 1,000 ML IV STA (23:31)
[2021-04-29] MEDS ORDERED: KETOROLAC 30 MG/ML VIAL IVP STA (23:31)
[2021-04-29] MEDS ORDERED: ONDANSETRON 4 MG/2 ML (SDV) Z0FRAN IVP STA (23:31)
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
[2021-04-29 23:45] LABS: BACTERIA,URINE MODERATE /HPF; BILIRUBIN,URINE NEGATIVE (NEGATIVE); CLARITY,URINE CLEAR; COLOR,URINE YELLOW; GLUCOSE, URINE (UA) NEGATIVE (NEGATIVE); KETONES,URINE TRACE (NEGATIVE); LEUKOCYTE ESTERASE ,URINE TRACE (NEGATIVE); NITRITE,URINE NEGATIVE (NEGATIVE); PROTEIN,URINE NEGATIVE (NEGATIVE); SQUAMOUS EPITHELIAL CELL,UR RARE /HPF; WBC,URINE 0-2 /HPF
[2021-04-29] MEDS ORDERED: HOLD METFORMIN - RECEIVED CONTRAST 20 ML VIAL IV SCH (23:45)
[2021-04-29] MEDS ORDERED: NS 100 ML (IVPB) BAG IV ONE (23:45)
[2021-04-29] MEDS ORDERED: CATHETER FLUSH 10 ML SYR IV PRN (23:45)
[2021-04-29] MEDS ORDERED: IOHEXOL 350 MG/ML 100 ML (OMNIPAQUE 350) VIAL IV ONE (23:45)
[2021-04-29 23:48] LABS: AMPHETAMINE SCREEN, URINE NEGATIVE (NEGATIVE); BARBITURATE SCREEN URINE NEGATIVE (NEGATIVE); BENZODIAZEPINES SCREEN URINE NEGATIVE (NEGATIVE); CANNABINOID SCREEN, URINE NEGATIVE (NEGATIVE); COCAINE SCREEN URINE NEGATIVE (NEGATIVE); METHADONE STAT NEGATIVE (NEGATIVE); METHAMPHETAMINE SCREEN URINE S NEGATIVE (NEGATIVE); OPIATE SCREEN URINE NEGATIVE (NEGATIVE); OXYCODONE STAT NEGATIVE (NEGATIVE); PROPOXYPHENE STAT NEGATIVE (NEGATIVE); TRICYCLIC ANTIDEPRESSANTS SCRE NEGATIVE (NEGATIVE)
[2021-04-29 23:53] LABS: HEMATOCRIT 42 % (35-52); HEMOGLOBIN 14.5 g/dL (11.5-16.0); MEAN CORPUSCULAR HEMOGLOBIN 31 pg (25-34); WHITE BLOOD COUNT 9.1 10^3/uL (4.3-11.0)
[2021-04-29 23:54] LABS: BASOPHILS # (AUTO) 0.1 10^3/uL (0.0-0.1); BASOPHILS % (AUTO) 1 % (0-10); EOSINOPHILS # (AUTO) 0.2 10^3/uL (0.0-0.3); EOSINOPHILS % (AUTO) 3 % (0-10); LYMPHOCYTES # (AUTO) 2.6 X 10^3 (1.0-4.0); LYMPHOCYTES % (AUTO) 29 % (12-44); MEAN CORPUSCULAR HGB CONC 34 g/dL (32-36); MEAN CORPUSCULAR VOLUME 90 fL (80-99); MEAN PLATELET VOLUME 10.6 fL (9.0-12.2); MONOCYTES # (AUTO) 0.6 X 10^3 (0.0-1.0); MONOCYTES % (AUTO) 7 % (0-12); NEUTROPHILS # (AUTO) 5.6 X 10^3 (1.8-7.8); NEUTROPHILS % (AUTO) 61 % (42-75); PLATELET COUNT 229 10^3/uL (130-400)
[2021-04-30 00:10] LABS: PROTHROMBIN TIME PATIENT 13.3 SEC (12.2-14.7)
[2021-04-30 00:14] LABS: CARBON DIOXIDE 24 MMOL/L (21-32); CHLORIDE 105 MMOL/L (98-107); POTASSIUM 3.6 MMOL/L (3.6-5.0); SODIUM 139 MMOL/L (135-145)
[2021-04-30 00:15] LABS: ALANINE AMINOTRANSFERASE 32 U/L (0-55); ALBUMIN 4.6 GM/DL (3.2-4.5); ALKALINE PHOSPHATASE 65 U/L (40-136); BILIRUBIN,TOTAL 0.3 MG/DL (0.1-1.0); BUN/CREATININE RATIO 15; CALCIUM 9.7 MG/DL (8.5-10.1); CREATININE SERUM 0.87 MG/DL (0.60-1.30); GFR ESTIMATED 80; GLUCOSE 136 MG/DL (70-105); LIPASE 23 U/L (8-78); MAGNESIUM 1.9 MG/DL (1.6-2.4); TOTAL PROTEIN 7.1 GM/DL (6.4-8.2)
[2021-04-30] MEDS ORDERED: BACL10TA PO (02:13)
[2021-04-30] MEDS ORDERED: IBUP-1780 PO (02:13)
[2021-04-30] MEDS ORDERED: ACHD5005 PO (02:13)
[2021-04-30 02:20] VITALS: BP 138/88
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
== END 2021-04-30 02:20 | disposition home or self-care (01) ==
LOC: EDUNIT# 23:19 → ER FS 23:20
DX: S16.1XXA Strain of muscle, fascia and tendon at neck level, initial encounter (principal); S29.012A Strain of muscle and tendon of back wall of thorax, initial encounter; S20.211A Contusion of right front wall of thorax, initial encounter; S09.90XA Unspecified injury of head, initial encounter; F41.9 Anxiety disorder, unspecified; F32.9 Major depressive disorder, single episode, unspecified; R40.2410 Glasgow coma scale score 13-15, unspecified time; V89.2XXA Person injured in unspecified motor-vehicle accident, traffic, initial encounter
CPT/HCPCS: 36415; 70450; 70486; 71260; 72125; 74177; 80053; 80306; 81000; 83690; 83735; 84703; 85025; 85610; 85730; 99284; G0480; 80320; 96361; 96374; 96375

== ENCOUNTER 2021-05-18 07:42 | Emergency (ER) | payer MEDICAID ==
[~2021-05-18] VITALS: Ht 167.7 cm; Wt 77.1 kg
[~2021-05-18 07:42] MED LIST changes: +ACHD5005 PO; +BACL10TA PO
[2021-05-18 08:04] VITALS: BP 119/76
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
[2021-05-18] MEDS ORDERED: methylPREDNISolone 40 MG/ML (Solu-MEDROL) VIAL IV ONE (08:15)
[2021-05-18] MEDS ORDERED: NS IV 1000 ML 1,000 ML IV SCH (08:15)
[2021-05-18] MEDS ORDERED: RT-ALBUTEROL/IPRATROPIUM 3 ML (DUONEB) VIAL INH ONE (08:15)
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
[2021-05-18 08:34] LABS: HEMATOCRIT 36 % (35-52); HEMOGLOBIN 12.2 g/dL (11.5-16.0); MEAN CORPUSCULAR HEMOGLOBIN 30 pg (25-34); MEAN CORPUSCULAR HGB CONC 34 g/dL (32-36); MEAN CORPUSCULAR VOLUME 89 fL (80-99); WHITE BLOOD COUNT 10.6 10^3/uL (4.3-11.0)
[2021-05-18 08:35] LABS: BASOPHILS % (AUTO) 1 % (0-10); EOSINOPHILS % (AUTO) 2 % (0-10); LYMPHOCYTES % (AUTO) 17 % (12-44); MEAN PLATELET VOLUME 10.2 fL (9.0-12.2); MONOCYTES % (AUTO) 9 % (0-12); NEUTROPHILS % (AUTO) 71 % (42-75); PLATELET COUNT 217 10^3/uL (130-400)
[2021-05-18 08:36] LABS: BASOPHILS # (AUTO) 0.1 10^3/uL (0.0-0.1); EOSINOPHILS # (AUTO) 0.2 10^3/uL (0.0-0.3); LYMPHOCYTES # (AUTO) 1.8 X 10^3 (1.0-4.0); MONOCYTES # (AUTO) 0.9 X 10^3 (0.0-1.0); NEUTROPHILS # (AUTO) 7.5 X 10^3 (1.8-7.8)
[2021-05-18 09:01] LABS: BILIRUBIN,TOTAL 0.6 MG/DL (0.1-1.0); CREATININE SERUM 0.63 MG/DL (0.60-1.30); POTASSIUM 3.4 MMOL/L (3.6-5.0); TOTAL PROTEIN 6.6 GM/DL (6.4-8.2)
[2021-05-18 09:02] LABS: ALBUMIN 3.8 GM/DL (3.2-4.5)
[2021-05-18] MEDS ORDERED: ALBU2.5V4 INH (09:06)
[2021-05-18] MEDS ORDERED: IBUP-1780 PO (09:06)
[2021-05-18] MEDS ORDERED: AZIT250T12 PO (09:06)
[2021-05-18] MEDS ORDERED: PRD50T PO (09:06)
== END 2021-05-18 09:22 | disposition home or self-care (01) ==
LOC: EDUNIT# 07:42 → ER FS 07:44
DX: J40 Bronchitis, not specified as acute or chronic (principal); F32.9 Major depressive disorder, single episode, unspecified; Z20.822 Contact with and (suspected) exposure to COVID-19; Z79.899 Other long term (current) drug therapy
CPT/HCPCS: 36415; 71045; 80053; 85025; 86141

== ENCOUNTER 2021-07-01 11:49 | Emergency (ER) | payer MEDICAID, OTHER ==
[~2021-07-01] VITALS: Ht 167.7 cm; Wt 77.8 kg
[~2021-07-01 11:49] MED LIST changes: +ALBU2.5V4 INH; +AZIT250T12 PO; +PRD50T PO
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
[2021-07-01 12:02] VITALS: BP 134/83
== END 2021-07-01 12:46 | disposition home or self-care (01) ==
LOC: EDUNIT# 11:49 → ER FS 11:52
DX: S51.812A Laceration without foreign body of left forearm, initial encounter (principal); F41.9 Anxiety disorder, unspecified; F32.9 Major depressive disorder, single episode, unspecified; Z79.899 Other long term (current) drug therapy; W26.0XXA Contact with knife, initial encounter

== ENCOUNTER 2021-07-09 18:44 | Emergency (ER) | payer OTHER ==
[~2021-07-09] VITALS: Ht 167.7 cm; Wt 77.1 kg
[~2021-07-09 18:44] MED LIST changes: +CYCL10TA25 PO; -CYCL10TA9 PO
[2021-07-09 18:53] VITALS: BP 112/78
--- NOTE | 2021-07-09 18:54 | ED Suture Removal/Wound Check ---
Suture/Wound Re-check Suture Removal/Wound Recheck : Suture Removal/Wound Recheck: Sutures removed by ALMA DELIA Grijalva 26 yo female presenting for suture removal. She had 4 stitches placed June 29 after getting a cut on her left forearm with a knife. She denies numbness, swelling, drainage, fever, redness, pain. It has been itching around the stitches. She was told to return in 1 week for removal of stitches. General Appearance: WD/WN, no apparent distress Neuro/Tendon: normal sensation, normal motor functions, normal tendon functions Skin Exam: normal color, warm/dry Physical Exam Vital Signs Vital Signs - First Documented 07/09/21 18:53 Temp 37.0 Pulse 73 Resp 14 B/P (MAP) 112/78 Pulse Ox 100 Capillary Refill : General Appearance: WD/WN, no apparent distress Extremities: normal range of motion, non-tender, normal capillary refill Skin: normal color, warm/dry, other (well healed laceration to left distal forearm without erythema, induration, fluctuance or drainage) Departure Impression Primary Impression: Encounter for removal of sutures Disposition: 01 HOME, SELF-CARE Condition: Stable Departure-Patient Inst. Decision time for Depature: 18:53 Referrals: SELFTAPAN MD (PCP/Family) Primary Care Physician Patient Instructions: SUTURE REMOVAL-UNCOMPLICATED Images Extremities-Upper 1 - Other-See Progress Note (Well healed laceration without erythema, induration, fluctuance, pain) LATONIA VILLAR MD Jul 09, 2021 18:54
== END 2021-07-09 18:58 | disposition home or self-care (01) ==
LOC: EDUNIT# 18:44 → ER FS 18:46
DX: Z48.02 Encounter for removal of sutures (principal)

== ENCOUNTER → 2021-07-21 | Outpatient (CLI) | payer MEDICAID, OTHER ==
[~2021-07-21] MED LIST changes: -CYCL10TA25 PO; +CYCL10TA9 PO
== END ==
LOC: MERGE 15:10 → LABNPT 15:10
PROVIDERS: ATTEND Family Medicine
DX: Z01.419 Encounter for gynecological examination (general) (routine) without abnormal findings (principal); N89.8 Other specified noninflammatory disorders of vagina
CPT/HCPCS: 87088; 87210

== ENCOUNTER 2021-08-31 21:38 | Emergency (ER) | payer MEDICAID ==
[~2021-08-31] VITALS: Ht 167 cm; Wt 73.3 kg
[~2021-08-31 21:38] MED LIST changes: +CYCL10TA25 PO; -CYCL10TA9 PO
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
[2021-08-31] MEDS ORDERED: KETOROLAC 30 MG/ML VIAL IM STA (21:49)
[2021-08-31] MEDS ORDERED: ORPHENADRINE 60 MG/2 ML (NORFLEX) AMP (ED ONLY) IM STA (21:49)
--- NOTE | 2021-08-31 22:42 | Diagnostic Imaging Report ---
EXAMINATION: PA chest, single view. Right ribs, 3 views. COMPARISON: Chest radiograph May 18, 2021. HISTORY: 26-year-old female, bucked off horse. Right-sided rib pain. FINDINGS: There are radiopaque foreign bodies overlying the left upper chest with a deformity of the left fifth rib. These are unchanged since the prior chest radiograph on May 18, 2021. Heart size and mediastinal contours are unremarkable. There is no identified pneumothorax. There is no pleural effusion. There is no identified focal airspace consolidation. There is no identified right rib fracture. IMPRESSION: 1. No identified right rib fracture or acute cardiopulmonary abnormality. 2. Left rib deformity and adjacent overlying foreign bodies are unchanged since at least May 18, 2021. Dictated by: Dictated on workstation # [id number]
--- NOTE | 2021-08-31 22:44 | Diagnostic Imaging Report ---
PROCEDURE: CT head and CT cervical spine without contrast. TECHNIQUE: Multiple contiguous axial images were obtained through the brain and cervical spine without the use of intravenous contrast. Sagittal and coronal reformations through the cervical spine were then performed. Auto Exposure Controls were utilized during the CT exam to meet ALARA standards for radiation dose reduction. DATE: August 31, 2021. COMPARISON: CT head, maxillofacial area, and cervical spine April 29, 2021. INDICATION: 26-year-old female, bucked off horse. Head and neck pain. Hit back of head. FINDINGS: There is no identified skull fracture. The ventricles and cerebral spinal fluid spaces are of normal size and configuration for the patient's age. There is no mass effect or midline shift. There is no acute intracranial hemorrhage. There is no abnormal extra-axial fluid collection. The visualized portions of the paranasal sinuses, mastoid air cells and middle ears are well aerated. There is a reversal of the normal cervical lordosis. There is no identified facet joint subluxation or dislocation. There is no asymmetric widening of the cervical disc spaces. There is no prevertebral soft tissue swelling. The cervical disc heights are well preserved. CT is limited for assessment of disc pathology as well as additional non-bony causes of pathology in the spinal canal. There is no identified acute fracture of the cervical spine. IMPRESSION: 1. No identified acute intracranial abnormality. 2. No identified acute abnormality of the cervical spine. Dictated by: Dictated on workstation # [id number]
[2021-08-31 23:00] VITALS: BP 119/96
== END 2021-08-31 23:00 | disposition home or self-care (01) ==
LOC: EDUNIT# 21:38 → ER FS 21:39
DX: S16.1XXA Strain of muscle, fascia and tendon at neck level, initial encounter (principal); S20.229A Contusion of unspecified back wall of thorax, initial encounter; S09.90XA Unspecified injury of head, initial encounter; M79.7 Fibromyalgia; F41.9 Anxiety disorder, unspecified; F31.9 Bipolar disorder, unspecified; Z79.899 Other long term (current) drug therapy; Z88.5 Allergy status to narcotic agent; V80.010A Animal-rider injured by fall from or being thrown from horse in noncollision accident, initial encounter
CPT/HCPCS: 70450; 71101; 72125; 84703

== ENCOUNTER 2021-10-02 06:51 | Emergency (ER) | payer MEDICAID ==
[~2021-10-02] VITALS: Ht 167 cm; Wt 78.0 kg
[2021-10-02] MEDS ORDERED: LACTATED RINGERS 1,000 ML IV STA (07:02)
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
[2021-10-02 07:33] LABS: HEMOGLOBIN 12.9 g/dL (11.5-16.0); MEAN CORPUSCULAR HEMOGLOBIN 31 pg (25-34); WHITE BLOOD COUNT 8.1 10^3/uL (4.3-11.0)
[2021-10-02 07:34] LABS: BASOPHILS % (AUTO) 0 % (0-10); EOSINOPHILS % (AUTO) 2 % (0-10); HEMATOCRIT 39 % (35-52); LYMPHOCYTES % (AUTO) 38 % (12-44); MEAN CORPUSCULAR HGB CONC 33 g/dL (32-36); MEAN CORPUSCULAR VOLUME 92 fL (80-99); MEAN PLATELET VOLUME 10.5 fL (9.0-12.2); MONOCYTES % (AUTO) 9 % (0-12); NEUTROPHILS % (AUTO) 50 % (42-75); PLATELET COUNT 246 10^3/uL (130-400)
[2021-10-02 07:35] LABS: EOSINOPHILS # (AUTO) 0.2 10^3/uL (0.0-0.3); LYMPHOCYTES # (AUTO) 3.1 X 10^3 (1.0-4.0); MONOCYTES # (AUTO) 0.7 X 10^3 (0.0-1.0); NEUTROPHILS # (AUTO) 4.1 X 10^3 (1.8-7.8)
[2021-10-02 07:41] LABS: BUN/CREATININE RATIO 18; CARBON DIOXIDE 23 MMOL/L (21-32); CHLORIDE 101 MMOL/L (98-107); CREATININE SERUM 0.68 MG/DL (0.60-1.30); GFR ESTIMATED 124; POTASSIUM 3.7 MMOL/L (3.6-5.0); SODIUM 136 MMOL/L (135-145)
[2021-10-02 07:42] LABS: ALANINE AMINOTRANSFERASE 8 U/L (0-55); ALBUMIN 4.1 GM/DL (3.2-4.5); ALKALINE PHOSPHATASE 56 U/L (40-136); BILIRUBIN,TOTAL 0.5 MG/DL (0.1-1.0); CALCIUM 9.1 MG/DL (8.5-10.1); GLUCOSE 94 MG/DL (70-105); TOTAL PROTEIN 6.8 GM/DL (6.4-8.2)
[2021-10-02 08:30] LABS: BILIRUBIN,URINE NEGATIVE (NEGATIVE); CLARITY,URINE CLEAR; COLOR,URINE YELLOW; GLUCOSE, URINE (UA) NEGATIVE (NEGATIVE); KETONES,URINE NEGATIVE (NEGATIVE); LEUKOCYTE ESTERASE ,URINE 1+ (NEGATIVE); NITRITE,URINE NEGATIVE (NEGATIVE); PROTEIN,URINE NEGATIVE (NEGATIVE)
[2021-10-02 08:46] LABS: BACTERIA,URINE MODERATE /HPF; RBC,URINE RARE /HPF; RENAL EPITHELIAL CELLS,URINE RARE /HPF
[2021-10-02] MEDS ORDERED: AMOX-358 PO (08:50)
--- NOTE | 2021-10-02 08:50 | Diagnostic Imaging Report ---
INDICATION: Right lower quadrant pain. Patient is 5 weeks . Sonographic interrogation right lower quadrant was performed. There is a somewhat tubular bowel signature in the right lower quadrant. This could potentially represent the appendix however not completely certain. No significant dilatation is seen. No no surrounding fluid is identified. The wall does not appear to be appreciably thickened. IMPRESSION: Questionable unremarkable appendix in right lower quadrant however this cannot be 100% certain. No fluid collection or noncompressible loop of bowel in the right lower quadrant is identified. Dictated by: Dictated on workstation # [id number]
[2021-10-02 09:10] VITALS: BP 114/62
== END 2021-10-02 08:55 | disposition home or self-care (01) ==
LOC: EDUNIT# 06:51 → ER FS 06:55
DX: O26.891 Other specified pregnancy related conditions, first trimester (principal); R10.31 Right lower quadrant pain; F41.9 Anxiety disorder, unspecified; F32.9 Major depressive disorder, single episode, unspecified; Z3A.01 Less than 8 weeks gestation of pregnancy; Z20.822 Contact with and (suspected) exposure to COVID-19; Z79.899 Other long term (current) drug therapy
CPT/HCPCS: 36415; 76705; 80053; 81000; 83605; 84145; 84702; 85025; 86141; 87088; 87635; 87804

== ENCOUNTER 2021-11-28 08:17 | Emergency (ER) | payer MEDICAID ==
[~2021-11-28] VITALS: Ht 167 cm; Wt 80.0 kg
[~2021-11-28 08:17] MED LIST changes: +AMOX-358 PO
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
[2021-11-28] MEDS ORDERED: LACTATED RINGERS 1,000 ML IV STA (08:28)
[2021-11-28] MEDS ORDERED: FAMOTIDINE 20MG/2ML IV (PEPCID) IV STA (08:28)
[2021-11-28] MEDS ORDERED: PROMETHAZINE INJ 25 MG/ML (PHENERGAN) AMP IVP STA (08:28)
[2021-11-28 08:32] LABS: BASOPHILS # (AUTO) 0.1 10^3/uL (0.0-0.1); BASOPHILS % (AUTO) 1 % (0-10); EOSINOPHILS # (AUTO) 0.1 10^3/uL (0.0-0.3); EOSINOPHILS % (AUTO) 1 % (0-10); HEMATOCRIT 35 % (35-52); HEMOGLOBIN 12.6 g/dL (11.5-16.0); LYMPHOCYTES # (AUTO) 2.4 10^3/uL (1.0-4.0); LYMPHOCYTES % (AUTO) 24 % (12-44); MEAN CORPUSCULAR HEMOGLOBIN 32 pg (25-34); MEAN CORPUSCULAR HGB CONC 36 g/dL (32-36); MEAN CORPUSCULAR VOLUME 88 fL (80-99); MEAN PLATELET VOLUME 10.4 fL (9.0-12.2); MONOCYTES # (AUTO) 0.5 10^3/uL (0.0-1.0); MONOCYTES % (AUTO) 5 % (0-12); NEUTROPHILS # (AUTO) 6.7 10^3/uL (1.8-7.8); NEUTROPHILS % (AUTO) 68 % (42-75); PLATELET COUNT 194 10^3/uL (130-400); WHITE BLOOD COUNT 9.8 10^3/uL (4.3-11.0)
[2021-11-28 08:55] LABS: BILIRUBIN,TOTAL 0.3 MG/DL (0.1-1.0); CALCIUM 9.1 MG/DL (8.5-10.1); CREATININE SERUM 0.44 MG/DL (0.60-1.30); POTASSIUM 3.8 MMOL/L (3.6-5.0); TOTAL PROTEIN 6.7 GM/DL (6.4-8.2)
[2021-11-28 09:14] LABS: BILIRUBIN,URINE NEGATIVE (NEGATIVE); CLARITY,URINE CLEAR; COLOR,URINE YELLOW; GLUCOSE, URINE (UA) NEGATIVE (NEGATIVE); KETONES,URINE NEGATIVE (NEGATIVE); LEUKOCYTE ESTERASE ,URINE NEGATIVE (NEGATIVE); NITRITE,URINE NEGATIVE (NEGATIVE); PH,URINE 7.5 (5-9); PROTEIN,URINE NEGATIVE (NEGATIVE)
[2021-11-28 09:16] LABS: AMORPHOUS SEDIMENT,UR MOD AMOR PHOSPHATE /LPF; BACTERIA,URINE NEGATIVE /HPF; WBC,URINE 0-2 /HPF
[2021-11-28] MEDS ORDERED: PROM25TA14 PO (09:23)
[2021-11-28 09:34] VITALS: BP 129/84
== END 2021-11-28 09:34 | disposition home or self-care (01) ==
LOC: EDUNIT# 08:17 → ER FS 08:18
DX: O21.0 Mild hyperemesis gravidarum (principal); Z3A.13 13 weeks gestation of pregnancy
CPT/HCPCS: 36415; 80053; 81000; 83690; 85025

== ENCOUNTER 2021-12-04 14:52 | Emergency (ER) | payer MEDICAID ==
[~2021-12-04] VITALS: Ht 167.7 cm; Wt 77.1 kg
[~2021-12-04 14:52] MED LIST changes: +PROM25TA14 PO
[2021-12-04] MEDS ORDERED: NS IV 1000 ML 1,000 ML IV STA (15:12)
[2021-12-04 15:17] LABS: BILIRUBIN,URINE NEGATIVE (NEGATIVE); COLOR,URINE YELLOW; GLUCOSE, URINE (UA) NEGATIVE (NEGATIVE); KETONES,URINE NEGATIVE (NEGATIVE); LEUKOCYTE ESTERASE ,URINE 2+ (NEGATIVE); NITRITE,URINE NEGATIVE (NEGATIVE); PROTEIN,URINE NEGATIVE (NEGATIVE)
[2021-12-04 15:20] LABS: CLARITY,URINE CLOUDY; WBC,URINE 50-100 /HPF
[2021-12-04 15:21] LABS: BACTERIA,URINE LARGE /HPF; SQUAMOUS EPITHELIAL CELL,UR 25-50 /HPF
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
[2021-12-04 15:38] LABS: BASOPHILS # (AUTO) 0.1 10^3/uL (0.0-0.1); BASOPHILS % (AUTO) 1 % (0-10); EOSINOPHILS # (AUTO) 0.4 10^3/uL (0.0-0.3); EOSINOPHILS % (AUTO) 4 % (0-10); HEMATOCRIT 37 % (35-52); HEMOGLOBIN 13.4 g/dL (11.5-16.0); LYMPHOCYTES # (AUTO) 1.7 10^3/uL (1.0-4.0); LYMPHOCYTES % (AUTO) 20 % (12-44); MEAN CORPUSCULAR HEMOGLOBIN 32 pg (25-34); MEAN CORPUSCULAR HGB CONC 36 g/dL (32-36); MEAN CORPUSCULAR VOLUME 88 fL (80-99); MEAN PLATELET VOLUME 10.4 fL (9.0-12.2); MONOCYTES # (AUTO) 0.5 10^3/uL (0.0-1.0); MONOCYTES % (AUTO) 5 % (0-12); NEUTROPHILS # (AUTO) 5.9 10^3/uL (1.8-7.8); NEUTROPHILS % (AUTO) 69 % (42-75); PLATELET COUNT 199 10^3/uL (130-400); WHITE BLOOD COUNT 8.5 10^3/uL (4.3-11.0)
--- NOTE | 2021-12-04 15:49 | Diagnostic Imaging Report ---
INDICATION: Vaginal bleeding. FINDINGS: There is a single live IUP measuring approximately 14 weeks 5 days gestational age. heart rate was recorded at 167 BPM. Placenta is fundal. Amniotic fluid volume appears normal. There is a subchorionic bleed present measuring 4.0 x 1.6 x 0.3 cm. Adnexa are unremarkable. IMPRESSION: Single live IUP of 14 to 15 weeks gestational age. There is a subchorionic bleed present. No other significant abnormality is seen. Dictated by: Dictated on workstation # [id number]
[2021-12-04 16:49] VITALS: BP 137/79
== END 2021-12-04 16:49 | disposition home or self-care (01) ==
LOC: EDUNIT# 14:52 → ER FS 14:53
DX: O46.92 Antepartum hemorrhage, unspecified, second trimester (principal); Z3A.14 14 weeks gestation of pregnancy
CPT/HCPCS: 36415; 76815; 81000; 84702; 85025

== ENCOUNTER 2021-12-16 20:48 | Emergency (ER) | payer MEDICAID ==
[~2021-12-16] VITALS: Ht 167.7 cm; Wt 80.0 kg
[2021-12-16 20:51] VITALS: BP 141/88
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
== END 2021-12-16 21:47 | disposition home or self-care (01) ==
LOC: EDUNIT# 20:48 → ER FS 20:49
DX: O99.712 Diseases of the skin and subcutaneous tissue complicating pregnancy, second trimester (principal); R11.0 Nausea; T63.301A Toxic effect of unspecified spider venom, accidental (unintentional), initial encounter; Z3A.16 16 weeks gestation of pregnancy
CPT/HCPCS: 99281

== ENCOUNTER 2022-01-22 17:05 | Emergency (ER) | payer MEDICAID ==
[~2022-01-22] VITALS: Ht 167.7 cm; Wt 83.1 kg
[2022-01-22 17:22] LABS: GLUCOSE, URINE (UA) NEGATIVE (NEGATIVE); KETONES,URINE NEGATIVE (NEGATIVE); LEUKOCYTE ESTERASE ,URINE TRACE (NEGATIVE); NITRITE,URINE NEGATIVE (NEGATIVE); PH,URINE 6.5 (5-9); PROTEIN,URINE 2+ (NEGATIVE)
[2022-01-22 17:27] LABS: CLARITY,URINE CLOUDY; COLOR,URINE DARK YELLOW
[2022-01-22 17:28] LABS: BACTERIA,URINE MODERATE /HPF; BILIRUBIN,URINE 1+ (NEGATIVE); RBC,URINE TNTC /HPF
[2022-01-22] MEDS ORDERED: NS IV 1000 ML 1,000 ML IV STA (17:46)
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
[2022-01-22 17:50] LABS: BASOPHILS % (AUTO) 1 % (0-10); EOSINOPHILS # (AUTO) 0.2 10^3/uL (0.0-0.3); EOSINOPHILS % (AUTO) 2 % (0-10); HEMATOCRIT 35 % (35-52); HEMOGLOBIN 12.3 g/dL (11.5-16.0); LYMPHOCYTES # (AUTO) 1.8 10^3/uL (1.0-4.0); LYMPHOCYTES % (AUTO) 21 % (12-44); MEAN CORPUSCULAR HEMOGLOBIN 32 pg (25-34); MEAN CORPUSCULAR HGB CONC 35 g/dL (32-36); MEAN CORPUSCULAR VOLUME 91 fL (80-99); MONOCYTES # (AUTO) 0.5 10^3/uL (0.0-1.0); MONOCYTES % (AUTO) 6 % (0-12); NEUTROPHILS % (AUTO) 71 % (42-75); PLATELET COUNT 177 10^3/uL (130-400); WHITE BLOOD COUNT 8.4 10^3/uL (4.3-11.0)
[2022-01-22 18:05] LABS: ALBUMIN 3.9 GM/DL (3.2-4.5); BILIRUBIN,TOTAL 0.4 MG/DL (0.1-1.0); CREATININE SERUM 0.42 MG/DL (0.60-1.30); POTASSIUM 3.5 MMOL/L (3.6-5.0); TOTAL PROTEIN 6.5 GM/DL (6.4-8.2)
[2022-01-22] MEDS ORDERED: ACETAMINOPHEN 500 MG TAB (TYLENOL) PO STA (18:07)
[2022-01-22 19:11] VITALS: BP 140/92
== END 2022-01-22 19:11 | disposition home or self-care (01) ==
LOC: EDUNIT# 17:05 → ER FS 17:07
DX: O23.92 Unspecified genitourinary tract infection in pregnancy, second trimester (principal); R82.71 Bacteriuria; O99.282 Endocrine, nutritional and metabolic diseases complicating pregnancy, second trimester; E86.0 Dehydration; Z87.59 Personal history of other complications of pregnancy, childbirth and the puerperium; Z3A.21 21 weeks gestation of pregnancy
CPT/HCPCS: 36415; 80053; 81000; 83690; 84112; 85025; 87088

== ENCOUNTER 2022-03-01 21:48 | Emergency (ER) | payer MEDICAID ==
[~2022-03-01] VITALS: Ht 167 cm; Wt 84.2 kg
[2022-03-01] MEDS ORDERED: ONDANSETRON 4 MG/2 ML (SDV) Z0FRAN ONE (22:35)
[2022-03-01] MEDS ORDERED: NS IV 1000 ML 1,000 ML ONE (22:35)
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
[2022-03-01] MEDS ORDERED: ONDANSETRON 4 MG/2 ML (SDV) Z0FRAN IVP ONE (22:45)
[2022-03-01] MEDS ORDERED: NS IV 1000 ML 1,000 ML IV SCH (22:45)
[2022-03-01 22:51] LABS: BASOPHILS % (AUTO) 0 % (0-10); EOSINOPHILS # (AUTO) 0.2 10^3/uL (0.0-0.3); EOSINOPHILS % (AUTO) 1 % (0-10); HEMATOCRIT 33 % (35-52); HEMOGLOBIN 11.8 g/dL (11.5-16.0); LYMPHOCYTES # (AUTO) 1.2 10^3/uL (1.0-4.0); LYMPHOCYTES % (AUTO) 8 % (12-44); MEAN CORPUSCULAR HEMOGLOBIN 32 pg (25-34); MEAN CORPUSCULAR HGB CONC 35 g/dL (32-36); MEAN CORPUSCULAR VOLUME 92 fL (80-99); MEAN PLATELET VOLUME 10.5 fL (9.0-12.2); MONOCYTES # (AUTO) 1.1 10^3/uL (0.0-1.0); MONOCYTES % (AUTO) 7 % (0-12); NEUTROPHILS # (AUTO) 12.9 10^3/uL (1.8-7.8); NEUTROPHILS % (AUTO) 83 % (42-75); PLATELET COUNT 194 10^3/uL (130-400); WHITE BLOOD COUNT 15.5 10^3/uL (4.3-11.0)
[2022-03-01 23:15] LABS: CHLORIDE 101 MMOL/L (98-107); POTASSIUM 3.8 MMOL/L (3.6-5.0); SODIUM 139 MMOL/L (135-145)
[2022-03-01 23:16] LABS: ALANINE AMINOTRANSFERASE < 5 U/L (0-55); ALBUMIN 3.6 GM/DL (3.2-4.5); ALKALINE PHOSPHATASE 73 U/L (40-136); AMYLASE 93 U/L (25-125); BILIRUBIN,TOTAL 0.5 MG/DL (0.1-1.0); BUN/CREATININE RATIO 17; CALCIUM 8.8 MG/DL (8.5-10.1); CARBON DIOXIDE 24 MMOL/L (21-32); CREATININE SERUM 0.48 MG/DL (0.60-1.30); GFR ESTIMATED 135; GLUCOSE 87 MG/DL (70-105); LIPASE 41 U/L (8-78); TOTAL PROTEIN 6.5 GM/DL (6.4-8.2)
[2022-03-01 23:18] LABS: BAND NEUTROPHILS 7 %; EOSINOPHILS % (MANUAL) 1 %; LYMPHOCYTES % (MANUAL) 8 %; MONOCYTES % (MANUAL) 7 %; MYELOCYTES % 1 %; NEUTROPHILS % (MANUAL) 76 %; PLATELET ESTIMATE NORMAL; RBC MORPH NORMAL; TOXIC GRANULATION/VACUOLAZATIO 3+
[2022-03-01 23:43] LABS: BILIRUBIN,URINE NEGATIVE (NEGATIVE); CLARITY,URINE CLEAR; COLOR,URINE YELLOW; GLUCOSE, URINE (UA) NEGATIVE (NEGATIVE); KETONES,URINE 3+ (NEGATIVE); LEUKOCYTE ESTERASE ,URINE TRACE (NEGATIVE); NITRITE,URINE NEGATIVE (NEGATIVE); PROTEIN,URINE TRACE (NEGATIVE)
[2022-03-01 23:57] LABS: BACTERIA,URINE FEW /HPF; WBC,URINE 0-2 /HPF
[2022-03-01 23:58] LABS: CALCIUM OXALATE CRYSTALS,UR FEW /LPF
[2022-03-02] MEDS ORDERED: ONDA4TAB11 PO (00:33)
[2022-03-02 00:40] VITALS: BP 104/65
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
== END 2022-03-02 00:40 | disposition home or self-care (01) ==
LOC: EDUNIT# 21:48 → ER FS 21:50
DX: O21.2 Late vomiting of pregnancy (principal); O26.892 Other specified pregnancy related conditions, second trimester; R10.13 Epigastric pain; Z20.822 Contact with and (suspected) exposure to COVID-19; Z28.310 Unvaccinated for COVID-19; Z3A.27 27 weeks gestation of pregnancy
CPT/HCPCS: 36415; 71046; 80053; 81000; 82150; 83690; 85007; 85027; 87636; 87804

== ENCOUNTER 2022-03-02 17:31 | Emergency (ER) | payer MEDICAID ==
[~2022-03-02] VITALS: Ht 167 cm; Wt 85.2 kg
[~2022-03-02 17:31] MED LIST changes: +ONDA4TAB11 PO
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
[2022-03-02] MEDS ORDERED: NS IV 1000 ML 1,000 ML IV STA (18:44)
[2022-03-02] MEDS ORDERED: ONDANSETRON 4 MG/2 ML (SDV) Z0FRAN IVP ONE (18:45)
[2022-03-02 18:49] LABS: BASOPHILS % (AUTO) 0 % (0-10); EOSINOPHILS # (AUTO) 0.3 10^3/uL (0.0-0.3); EOSINOPHILS % (AUTO) 3 % (0-10); HEMATOCRIT 33 % (35-52); HEMOGLOBIN 11.4 g/dL (11.5-16.0); LYMPHOCYTES # (AUTO) 1.7 10^3/uL (1.0-4.0); LYMPHOCYTES % (AUTO) 17 % (12-44); MEAN CORPUSCULAR HEMOGLOBIN 32 pg (25-34); MEAN CORPUSCULAR HGB CONC 35 g/dL (32-36); MEAN CORPUSCULAR VOLUME 94 fL (80-99); MONOCYTES # (AUTO) 0.5 10^3/uL (0.0-1.0); MONOCYTES % (AUTO) 5 % (0-12); NEUTROPHILS # (AUTO) 7.9 10^3/uL (1.8-7.8); NEUTROPHILS % (AUTO) 75 % (42-75); PLATELET COUNT 212 10^3/uL (130-400); WHITE BLOOD COUNT 10.5 10^3/uL (4.3-11.0)
[2022-03-02 18:55] LABS: PROTHROMBIN TIME PATIENT 13.9 SEC (12.2-14.7)
[2022-03-02 19:16] LABS: ALBUMIN 3.1 GM/DL (3.2-4.5); BILIRUBIN,TOTAL 0.5 MG/DL (0.1-1.0); CALCIUM 8.7 MG/DL (8.5-10.1); CREATININE SERUM 0.6 MG/DL (0.60-1.30); POTASSIUM 3.9 MMOL/L (3.6-5.0); TOTAL PROTEIN 6.5 GM/DL (6.4-8.2)
[2022-03-02 20:07] VITALS: BP 101/64
== END 2022-03-02 20:09 | disposition still patient (30) ==
LOC: EDUNIT# 17:31 → ER 17:32
DX: O26.892 Other specified pregnancy related conditions, second trimester (principal); R06.02 Shortness of breath; R10.11 Right upper quadrant pain; R10.33 Periumbilical pain; O21.2 Late vomiting of pregnancy; Z3A.27 27 weeks gestation of pregnancy; Z28.310 Unvaccinated for COVID-19
CPT/HCPCS: 36415; 80053; 83615; 85025; 85610; 85730

== ENCOUNTER 2022-04-23 15:22 | Outpatient (CLI) | payer MEDICAID ==
[2022-04-23] VITALS (18 sets, daily range): BP systolic 114–124; BP diastolic 67–79
[2022-04-23 16:19] LABS: BILIRUBIN,URINE NEGATIVE (NEGATIVE); CLARITY,URINE CLOUDY; COLOR,URINE YELLOW; GLUCOSE, URINE (UA) NEGATIVE (NEGATIVE); KETONES,URINE 1+ (NEGATIVE); LEUKOCYTE ESTERASE ,URINE 2+ (NEGATIVE); NITRITE,URINE NEGATIVE (NEGATIVE); PROTEIN,URINE TRACE (NEGATIVE)
[2022-04-23 16:28] LABS: BACTERIA,URINE LARGE /HPF; WBC,URINE 50-100 /HPF; YEAST,URINE MODERATE /HPF
[2022-04-23] MEDS ORDERED: PREN1TAB79 PO (17:28)
[2022-04-23] MEDS ORDERED: DULO60CA7 PO (17:28)
--- NOTE | 2022-04-26 08:15 | Physician Query-Final Dx ---
Clinic Account Progress/Dx Physician Query: Please give diagnosis Please include # weeks gestation Date of Service Apr 23, 2022 at 15:22 JACKSON,SepApr 26, 2022 08:15
== END 2022-04-23 17:46 | disposition home or self-care (01) ==
LOC: WSo 15:22 → LDRP 15:28 → WS 15:47 → LDRP 15:47 → WSo 17:46
PROVIDERS: ATTEND Obstetrics & Gynecology
DX: O26.899 Other specified pregnancy related conditions, unspecified trimester (principal); R51.9 Headache, unspecified; R06.02 Shortness of breath; Z3A.00 Weeks of gestation of pregnancy not specified
CPT/HCPCS: 81000; 87088

== ENCOUNTER 2022-05-11 07:00 | Inpatient (IN) | payer MEDICAID ==
[2022-05-11] VITALS (48 sets, daily range): BP systolic 108–169; BP diastolic 58–101
[~2022-05-11] VITALS: Ht 167.7 cm; Wt 97.3 kg
[~2022-05-11 07:00] MED LIST changes: +DULO60CA7 PO; +LABE200T10 PO; -LABE200T7 PO; +PREN1TAB79 PO
--- NOTE | 2022-05-11 07:17 | History & Physical ---
History and Physical Date Seen by Provider: May 11, 2022 Time Seen by Provider: 07:15 This patient is a 26-year-old 4 para 2 A1 female who presents at 37 weeks gestation for induction of labor due to -induced hypertension.She does have a history of very rapid labors and rapid deliveriesAnd of labor.Her GBS culture was negative. She denies rupture membranes or bleeding. She has no bowel or bladder complaints. Allergies are to sulfa, Demerol meperidine midazolam and milk Medications are vitamins Medical social and surgical histories are per the antepartum record HEENT exam is normal Neck is supple no lymphadenopathy no thyromegaly Abdomen is gravid soft nontender nondistended Extremities show no clubbing cyanosis. There is no Homans' sign. Assessment and plan 37-week in a patient with -induced hypertension And a history of preeclampsia and history of labor. She is admitted now for induction of labor We anticipate a vaginal delivery 37 weeks gestation with -induced hypertension Allergies and Home Medications Allergies Coded Allergies: midazolam (Verified Allergy, Severe, ANAPHYLAXIS, 04/27/17) Sulfa (Sulfonamide Antibiotics) (Verified Allergy, Unknown, RASH, 04/27/17) meperidine (Verified Allergy, Unknown, ANAPHYLAXIS, 04/27/17) milk (Verified Allergy, Unknown, 02/08/19) Patient Home Medication List Home Medication List Reviewed: Yes Cyclobenzaprine HCl (Cyclobenzaprine HCl) 10 Mg Tablet, 10 MG PO DAILY, (Reported) Entered as Reported by: TOI DICKINSON on 02/08/19 1704 Duloxetine HCl (Cymbalta) 60 Mg Capsule.dr, 60 MG PO DAILY, (Reported) Entered as Reported by: CHARLINE RUSSELL on 04/23/221727 Ondansetron (Ondansetron Odt) 4 Mg Tab.rapdis, 4 MG PO Q8H Prescribed by: Yuriy Andrew on 03/02/22 0033 Vit W-Ca,Fe,FA(<1 mg) ( Vitamins) 27 Mg Iron-800 Mcg Tablet, 1 EACH PO, (Reported) Entered as Reported by: CHARLINE RUSSELL on 04/23/221727 JOSE MANUEL DAWSON MD May 11, 2022 07:17
[2022-05-11] MEDS ORDERED: IBUP-1780 PO (07:19)
[2022-05-11] MEDS ORDERED: DOCU-143 PO (07:19)
[2022-05-11] MEDS ORDERED: OXYC1TAB87 PO (07:19)
--- NOTE | 2022-05-11 07:20 | Discharge Inst-Surgical ---
Discharge Inst-Surgical Depart Medication/Instructions New, Converted or Re-Newed RX: Transmitted to Pharmacy Consults/Follow Up Patient Instructions: As directed Orders & Referrals Follow Up Appt: Call to make follow up appt. for patient in 4 weeks. Activity Per routine post vaginal delivery instructions. Diet as tolerated Patient may shower or tub bathe as desired. Activity Activity as Tolerated: No Diet Discharge Diet: No Restrictions JOSE MANUEL DAWSON MD May 11, 2022 07:20
[2022-05-11] MEDS ORDERED: OXYTOCIN PRE-MIX DRIP 500 ML IV SCH ×2 (07:30→16:15)
[2022-05-11] MEDS ORDERED: D5 LR IV SOLUTION 1,000 ML IV SCH (07:30)
[2022-05-11] MEDS ORDERED: LIDOCAINE UROJET 2% GEL 10 ML PKG TOP ONE (07:30)
[2022-05-11 07:36] LABS: HEMOGLOBIN 11.3 g/dL (11.5-16.0)
[2022-05-11 07:38] LABS: BASOPHILS # (AUTO) 0.1 10^3/uL (0.0-0.1); BASOPHILS % (AUTO) 1 % (0-10); EOSINOPHILS # (AUTO) 0.4 10^3/uL (0.0-0.3); EOSINOPHILS % (AUTO) 4 % (0-10); HEMATOCRIT 33 % (35-52); LYMPHOCYTES # (AUTO) 2.5 10^3/uL (1.0-4.0); LYMPHOCYTES % (AUTO) 25 % (12-44); MEAN CORPUSCULAR HEMOGLOBIN 31 pg (25-34); MEAN CORPUSCULAR HGB CONC 34 g/dL (32-36); MEAN CORPUSCULAR VOLUME 90 fL (80-99); MEAN PLATELET VOLUME 10.5 fL (9.0-12.2); MONOCYTES # (AUTO) 0.9 10^3/uL (0.0-1.0); MONOCYTES % (AUTO) 9 % (0-12); NEUTROPHILS # (AUTO) 6.1 10^3/uL (1.8-7.8); NEUTROPHILS % (AUTO) 61 % (42-75); PLATELET COUNT 158 10^3/uL (130-400)
[2022-05-11] MEDS ORDERED: fentaNYL 2 mcg/ml BUPIVA 0.125 100 ML ONE (07:52)
[2022-05-11] MEDS ORDERED: BUPIVACAINE 0.25% 30 ML (SENSORCAINE) VIAL ONE (08:49)
[2022-05-11] MEDS ORDERED: fentaNYL INJ 100 MCG/2 ML AMP ONE (08:49)
[2022-05-11] MEDS: fentaNYL 2 mcg/ml BUPIVA 0.125 100 ML EPI SCH ×2 (09:20→18:35)
[2022-05-11] MEDS ORDERED: ONDANSETRON 4 MG/2 ML (SDV) Z0FRAN IV PRN (10:15)
[2022-05-11] MEDS ORDERED: NALOXONE 0.4 MG/ML 1 ML (NARCAN) VIAL IV PRN ×2 (10:15)
[2022-05-11] MEDS ORDERED: diphenhydrAMINE 50 MG/ML INJ (BENADRYL) IV PRN (10:15)
[2022-05-11] MEDS ORDERED: LACTATED RINGERS 1,000 ML IV SCH (10:15)
[2022-05-11] MEDS ORDERED: METOCLOPRAMIDE INJ 10 MG/2 ML (REGLAN) IV PRN (10:15)
[2022-05-11] MEDS ORDERED: METHYLERGONOVINE 0.2 MG/ML (METHERGINE) AMP ONE (15:50)
[2022-05-11] MEDS ORDERED: BENZOCAINE/MENTHOL (DERMOPLAST) 56 ML CAN TP PRN (16:15)
[2022-05-11] MEDS ORDERED: ONDANSETRON 4 MG/2 ML (SDV) Z0FRAN IVP PRN (16:15)
[2022-05-11] MEDS ORDERED: TETANUS,DIPTH,PERTUSS P/F (BOOSTRIX) 0.5 ML VIAL IM ONE (16:15)
[2022-05-11] MEDS ORDERED: IBUPROFEN 800 MG (MOTRIN) TAB PO ONE (16:33)
[2022-05-11] MEDS ORDERED: KETOROLAC 30 MG/ML VIAL IV SCH (17:00)
[2022-05-11] MEDS ORDERED: METHYLERGONOVINE 0.2 MG/ML (METHERGINE) AMP IM ONE (17:15)
[2022-05-11] MEDS ORDERED: IBUPROFEN 800 MG (MOTRIN) TAB PO SCH (18:00)
[2022-05-11] MEDS: oxyCODONE/APAP 5/325MG (PERCOCET 5) TABLET PO PRN (19:00)
[2022-05-11] MEDS: KETOROLAC 30 MG/ML VIAL IV SCH (22:27)
--- NOTE | 2022-05-11 23:23 | OPERATIVE REPORT ---
DATE OF SERVICE: 05/11/2022 DELIVERY NOTE ADMIT DIAGNOSIS: Term at 37 weeks gestation with history of labor and history of rapid deliveries. The patient delivered at 37 weeks, a viable male infant with Apgars of 4, 5 and 8 at 1, 5 and 10 minutes respectively. Cord blood pH was 7.12. weight of 6 pounds 10 ounces and a time of 1536. DELIVERY DESCRIPTION: With the patient completely dilated, she was allowed to push. She did push to have a large amount of stool and then delivered by term spontaneous vaginal delivery a viable male infant with Apgars and stats as noted above. The infant had a tight nuchal cord that was released by slipping it over the shoulders, allowing the delivery to complete through the loop of umbilical cord. The infant was bulb suctioned on delivery of the head and again on completion of delivery. Umbilical cord when pulseless was doubly clamped, the father cut the cord, the baby was passed transiently to mom's abdomen. Cord bloods were obtained. The placenta delivered promptly spontaneously [place]. It was normal with a 3-vessel cord. It was sent to pathology for permanent section. The cervix, vagina, rectum, and perineum were examined and found intact, except for some very superficial periurethral abrasions. The patient did experience some degree of uterine atony immediately after delivery. Blood loss was around 600 mL. She did respond to massage and Pitocin and eventually to a single dose of IM Methergine. Sponge and needle counts were correct. Total blood loss was around 600 mL. The patient remained in the LDR for recovery. Baby was taken to the full term nursery under the care of the pediatric nurses. Job ID: [id number] DocumentID: [id number] Dictated Date: 05/11/2022 17:26:25 Front Line Leader Date: 05/11/2022 23:22:41 Dictated By: JOSE MANUEL DAWSON MD
[2022-05-12 00:10] VITALS: BP 108/65
[2022-05-12] MEDS: oxyCODONE/APAP 5/325MG (PERCOCET 5) TABLET PO PRN ×3 (00:18→08:14)
[2022-05-12] MEDS: KETOROLAC 30 MG/ML VIAL IV SCH ×2 (04:20→10:00)
[2022-05-12 04:25] VITALS: BP 114/71
[2022-05-12 08:10] VITALS: BP 116/72
--- NOTE | 2022-05-12 12:52 | Anesthesia-Regional Post-Op ---
Regional Patient Condition Mental Status: Alert, Oriented x3 Circulation: Same as Pre-Op Headache: Absent Sensation: Full Recovery Motor Block: Absent Post Op Complications Complications None Follow Up Care/Instructions Patient Instructions None needed. Anesthesia/Patient Condition Patient is doing well, no complaints, stable vital signs, no apparent adverse anesthesia problems. No complications reported per nursing. KATHERYN LEONE CRNA May 12, 2022 12:52
[2022-05-12] MEDS ORDERED: IBUPROFEN 800 MG (MOTRIN) TAB PO SCH ×2 (16:00→17:00)
--- NOTE | 2022-05-13 07:46 | Progress Note ---
Standard Progress Note Progress Notes/Assess & Plan Date Seen by a Provider: May 12, 2022 Time Seen by a Provider: 07:45 Progress/Assessment & Plan This is a late entry for Alejandrina Adhikari. This patient is day #1 doing well. She is ambulating, voiding, tolerating oral intake well and has good pain control. Her baby was transferred to [facility] patient reports baby is doing quite well and she is requesting discharge home. Vital signs were reviewed and are normal and patient is afebrile The abdomen is benign. Fundus is firm below the umbilicus and nontender. Extremities show no clubbing cyanosis. There is no Homans' sign. Assessment and plan day #1 doing well. Plans for discharge home with follow-up in clinic Final Diagnosis 37-week spontaneous vaginal delivery JOSE MANUEL DAWSON MD May 13, 2022 07:46
== END 2022-05-12 10:50 | disposition home or self-care (01) | DRG 807 ==
LOC: LDRP 07:13
PROVIDERS: ADMIT Obstetrics & Gynecology; ATTEND Obstetrics & Gynecology
PROC: 10E0XZZ Delivery of Products of Conception, External Approach (ICD-10-PCS; principal; 2022-05-11)
PROC: 3E033VJ Introduction of Other Hormone into Peripheral Vein, Percutaneous Approach (ICD-10-PCS; 2022-05-11)
DX: O13.4 Gestational [pregnancy-induced] hypertension without significant proteinuria, complicating childbirth (principal); Z37.0 Single live birth; Z3A.37 37 weeks gestation of pregnancy; O69.81X0 Labor and delivery complicated by cord around neck, without compression, not applicable or unspecified; O71.82 Other specified trauma to perineum and vulva; O62.2 Other uterine inertia
CPT/HCPCS: 36415; 85025; 86850; 86900; 86901

== ENCOUNTER 2022-08-02 15:06 | Emergency (ER) | payer MEDICAID ==
[~2022-08-02 15:06] MED LIST changes: +DOCU-143 PO
== END 2022-08-02 16:26 | disposition left against medical advice (07) ==
LOC: EDUNIT# 15:06 → ER FS 15:08
DX: R51.9 Headache, unspecified (principal); M54.9 Dorsalgia, unspecified

== ENCOUNTER 2022-10-14 07:57 | Emergency (ER) | payer MEDICAID ==
[2022-10-14] MEDS ORDERED: LACTATED RINGERS 1,000 ML IV STA (08:21)
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
[2022-10-14] MEDS ORDERED: PROCHLORPERAZINE 10 MG/2ML INJ (COMPAZINE) IV ONE (08:30)
[2022-10-14] MEDS ORDERED: diphenhydrAMINE 50 MG/ML INJ (BENADRYL) IVP ONE (08:30)
[2022-10-14] MEDS ORDERED: KETOROLAC 15 MG/ML VIAL IVP ONE (08:30)
[2022-10-14 08:35] LABS: BILIRUBIN,URINE NEGATIVE (NEGATIVE); CLARITY,URINE TURBID; COLOR,URINE YELLOW; GLUCOSE, URINE (UA) NEGATIVE (NEGATIVE); KETONES,URINE 2+ (NEGATIVE); LEUKOCYTE ESTERASE ,URINE NEGATIVE (NEGATIVE); NITRITE,URINE POSITIVE (NEGATIVE); PH,URINE 5.5 (5-9); PROTEIN,URINE TRACE (NEGATIVE)
[2022-10-14 08:43] LABS: BACTERIA,URINE LARGE /HPF; SQUAMOUS EPITHELIAL CELL,UR RARE /HPF
[2022-10-14] MEDS ORDERED: CEFD300C3 PO (08:48)
[2022-10-14] MEDS ORDERED: ONDA4TAB11 SL (08:52)
[2022-10-14] MEDS ORDERED: cefTRIAXone 1 GM PRE-MIX 50 ML IV ONE (09:00)
[2022-10-14 09:15] VITALS: BP 120/72
== END 2022-10-14 09:18 | disposition home or self-care (01) ==
LOC: EDUNIT# 07:57 → ER FS 07:58
DX: R51.9 Headache, unspecified (principal); N30.90 Cystitis, unspecified without hematuria; F17.290 Nicotine dependence, other tobacco product, uncomplicated; Z20.822 Contact with and (suspected) exposure to COVID-19; Z88.1 Allergy status to other antibiotic agents; Z28.310 Unvaccinated for COVID-19
CPT/HCPCS: 81000; 84703; 87088; 87636; 96374; 96375; 99283

== ENCOUNTER 2023-02-07 20:26 | Emergency (ER) | payer MEDICAID ==
[~2023-02-07] VITALS: Ht 167.7 cm; Wt 85.2 kg
[~2023-02-07 20:26] MED LIST changes: +CEFD300C3 PO; +ONDA4TAB11 SL
[2023-02-07 20:27] VITALS: BP 131/76
[2023-02-07] MEDS ORDERED: AUGMENTIN 875 MG TAB (AMOXICILLIN/CLAVULANATE) PO STA (21:07)
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
[2023-02-07] MEDS ORDERED: RX-OFLOXACIN 0.3% OPHTH SOLN 5 ML ONE (21:21)
[2023-02-07] MEDS ORDERED: ACHD5005 PO (21:35)
[2023-02-07] MEDS ORDERED: AMOX1TAB12 PO (21:35)
[2023-02-08] MEDS ORDERED: RX-OFLOXACIN 0.3% OPHTH SOLN 5 ML OP SCH (09:00)
== END 2023-02-07 21:38 | disposition home or self-care (01) ==
LOC: EDUNIT# 20:26 → ER FS 20:27
DX: H65.91 Unspecified nonsuppurative otitis media, right ear (principal); F17.290 Nicotine dependence, other tobacco product, uncomplicated; Z88.2 Allergy status to sulfonamides; Z88.0 Allergy status to penicillin; Z28.310 Unvaccinated for COVID-19
CPT/HCPCS: 99283

== ENCOUNTER 2023-04-24 07:59 | Emergency (ER) | payer MEDICAID ==
[~2023-04-24 07:59] MED LIST changes: +AMOX1TAB12 PO
[2023-04-24] MEDS ORDERED: KETO10TA PO (08:26)
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
[2023-04-24] MEDS ORDERED: KETOROLAC INJ 15 MG/ML VIAL IM ONE (08:30)
[2023-04-24 08:33] VITALS: BP 124/80
== END 2023-04-24 08:35 | disposition home or self-care (01) ==
LOC: EDUNIT# 07:59 → ER FS 08:01
DX: K08.89 Other specified disorders of teeth and supporting structures (principal); Z28.310 Unvaccinated for COVID-19
CPT/HCPCS: 99284